=== PATIENT | female | born 1945 | race Caucasian/White ===

== ENCOUNTER 2019-06-09 14:17 | Outpatient (CLI) | payer MEDICARE, SELFPAY ==
--- NOTE | ~2019-06-09 | XR_ITS ---
EXAMINATION: XR sacroiliac joints min 3V, XR hip RT min 2V DATE: 06/09/2019 14:52 INDICATION: Right-sided hip pain TECHNIQUE: 1. Anteroposterior and frog-leg lateral views of the right hip were obtained. 2. AP and left and right oblique views of the sacroiliac joints were obtained. COMPARISON: None. FINDINGS: Bone alignment is normal. No fracture or suspected avascular necrosis. There is mild left and moderat e right hip osteoarthritis. Minimal bilateral sacroiliac osteoarthritis. Sacral arches are intact. Mo derate to severe lower lumbar facet osteoarthritis. Multiple small metallic coils project over the mi d abdomen consistent with prior ventral hernia repair. IMPRESSION: 1. Mild left and moderate right hip osteoarthritis. 2. Moderate to severe lower lumbar facet osteoarthritis. Reviewed, dictated and finalized at location A. Y MANAGER IMPRESSION: 1. Mild left and moderate right hip osteoarthritis. 2. Moderate to severe lower lumbar facet osteoarthritis.
== END 2019-06-09 14:18 | disposition home or self-care (01) ==
LOC: ANHIMG 14:29
PROVIDERS: PCP Family Medicine; Visit Provider Family Medicine
DX: M16.0 Bilateral primary osteoarthritis of hip (principal); M51.36 Other intervertebral disc degeneration, lumbar region
CPT/HCPCS: 72202; 73502

== ENCOUNTER 2019-08-19 13:50 | Outpatient (CLI) | payer MEDICARE, SELFPAY ==
--- NOTE | ~2019-08-19 | MR_ITS ---
EXAMINATION: MR hip RT wo con DATE: 08/19/2019 15:05 INDICATION: Right hip pain and weakness TECHNIQUE: Magnetic resonance imaging (MRI) of the right hip was performed without intravenous contr ast. Sequences included full-field axial PD-weighted FS FSE and T1-weighted FSE, coronal of the pelvi s with PD-weighted FS FSE, small field of view of the right hip with axial PD-weighted FS FSE, sagit mendoza PD-weighted FS FSE and coronal PD weighted FS FSE. Additional radial T1-weighted FGR oriented ort hogonal to the acetabular rim were obtained for evaluation of the labrum. COMPARISON: None FINDINGS: Bones/labrum/cartilage: Alignment is normal. No fracture, avascular necrosis or pathologic marrow replacing process. There i s bilateral decreased femoral head/neck offset which can predispose towards cam-type femoral acetabul ar impingement. On the right there is marrow edema underlying and small hypertrophic likely impingeme nt bumps with typical position at the anterosuperior femoral head neck junction. There is moderate ri ght hip osteoarthritis characterized by partial thickness cartilage loss with anterior and superior p redominant nonuniform joint space narrowing as well as small hypertrophic osteophytes at the margins of the acetabulum and femoral head. There is diffuse degenerative tearing of the anterosuperior to po sterior superior right acetabular labrum. Fluid: Small right hip joint effusion. Physiologic amount of fluid in the left hip joint space. Soft tissues: Normal and symmetric muscle bulk and signal in the pelvis and visualized proximal thighs. The iliopso as, gluteal and proximal hamstring tendons are normal. Limited evaluation of visceral organs of the p brooke is unremarkable. No pathologically enlarged pelvic/inguinal lymphadenopathy. IMPRESSION: 1. Moderate right hip osteoarthritis with likely degenerative tearing of the right acetabular labrum and small reactive right hip joint effusion. Reviewed, dictated and finalized at location A. IMPRESSION: 1. Moderate right hip osteoarthritis with likely degenerative tearing of the ri ght acetabular labrum and small reactive right hip joint effusion.
== END 2019-08-19 13:51 | disposition home or self-care (01) ==
PROVIDERS: PCP Family Medicine; Visit Provider Orthopaedic Surgery
DX: M25.551 Pain in right hip (principal); M16.12 Unilateral primary osteoarthritis, left hip; M25.451 Effusion, right hip; S73.191A Other sprain of right hip, initial encounter
CPT/HCPCS: 73721

== ENCOUNTER 2020-12-31 14:47 | Emergency (ER) | payer MEDICARE, SELFPAY ==
--- NOTE | 2020-12-31 14:53 | ED.FEMALEGU ---
HPI - Female Genitourinary General Chief complaint: Urogenital-Female Stated complaint: POS UTI Time Seen by Provider: 12/31/20 14:53 Source: patient and RN notes reviewed History of Present Illness HPI Narrative: Patient is a 75-year-old female who presents the urgent care with complaints of a possible UTI. Patient states that symptoms started approximately 3 days ago and the last 2 days have been increased urinary frequency, some incontinence, and suprapubic pressure. Patient denies of any use of [id number] medication for symptoms. Denies of any chronic UTIs. Denies of fever, chills, nausea, vomiting, back pain or blood in the urine. No other acute complaints. No acute distress noted. Patient aware of the plan of care. Some parts of this dictation were generated by voice recognition software and may contain typographical and/or grammatical inaccuracies. Related Data Home Medications Medication Instructions Recorded Confirmed naproxen 500 mg tablet 500 mg PO Q12H PRN tablet 05/22/19 12/31/20 omeprazole 20 mg capsule,delayed 20 mg PO DAILY 05/22/19 12/31/20 release albuterol sulfate 90 mcg/actuation 2 puff INHALATION Q4H PRN gm 06/09/19 12/31/20 aerosol inhaler azelastine 205.5 mcg (0.15 %) 1 spray NASAL DAILY 06/09/19 12/31/20 nasal spray tiotropium bromide 2.5 2 puff INHALATION DAILY 06/09/19 12/31/20 mcg/actuation mist for inhalation acetaminophen [Tylenol Extra 500 mg PO Q6H PRN 12/31/20 12/31/20 Strength] cholecalciferol (vitamin D3) 50 mcg PO DAILY 12/31/20 12/31/20 [Vitamin D3] lutein 20 mg PO DAILY 12/31/20 12/31/20 melatonin 5 mg PO HS 12/31/20 12/31/20 [id number]-vit K 1 tablet PO DAILY 12/31/20 12/31/20 [Adults Multivitamin] Allergies Allergy/AdvReac Type Severity Reaction Status Date / Time erythromycin base Allergy Unknown Unknown Verified 12/31/20 15:00 metformin AdvReac Severe Diarrhea Verified 12/31/20 15:00 Review of Systems Review of Systems: CONSTITUTIONAL: Denies fever, chills, or sweats. EYES: Denies visual changes, redness, or discharge. ENT: Denies rhinorrhea, congestion, sore throat, or otalgia. CARDIOVASCULAR: Denies chest pain, palpitations, or edema. RESPIRATORY: Denies cough or dyspnea. GASTROINTESTINAL: Denies abdominal pain, nausea, vomiting, or diarrhea. GENITOURINARY: Reports of dysuria, urinary frequency, incontinence and suprapubic pressure SKIN: Denies rash or itching. MUSCULOSKELETAL: Denies back pain, joint pain, or myalgia. NEUROLOGIC: Denies headache, numbness, or weakness. All other systems reviewed are negative, except as documented in HPI. [facility] Past Medical History Medical History (Updated 12/31/20 @ 15:16 by TERRI Narayan) Allergic cough Asthma due to environmental allergies Broken wrist Environmental allergies GERD (gastroesophageal reflux disease) Hyperlipidemia Hypothyroidism determined by thyroid function test Obesity (BMI 30.0-34.9) Pre-op evaluation Surgical History Surgical History H/O left wrist surgery History of cholecystectomy History of hernia repair History of tonsillectomy History of tubal ligation [place] teeth removed Family History Family History Mother Family history of hypercholesterolemia Father Family history of atrial fibrillation Social History Social History Smoking status: Smoker, status unknown Second hand tobacco smoke exposure: No Smoking end date: 04/15/1968 Alcohol intake: current Alcohol use details: Social Substance use: never Substance use type: does not use Gender identity (if verbalized by the patient): Female Spiritual care concerns: Yes Agree to blood products: Yes Comments At the time of my signature, I reviewed and agree with the nursing past medical, surgical, social
[2020-12-31 15:02] VITALS: BP 146/75; PULSE 81; RESP 16; TEMP 36.4; O2SAT 100
== END 2020-12-31 15:30 | disposition home or self-care (01) ==
PROVIDERS: Emergency Provider Nurse Practitioner Family; PCP Internal Medicine
DX: N39.0 Urinary tract infection, site not specified (principal); E78.5 Hyperlipidemia, unspecified; Z79.1 Long term (current) use of non-steroidal anti-inflammatories (NSAID)
CPT/HCPCS: 81003; 87077; 87086; 87186; 99213; G0463

== ENCOUNTER 2021-10-28 17:22 | Observation (INO) | payer MEDICARE, SELFPAY ==
[2021-10-28] VITALS (31 sets, daily range): BP systolic 144–185; BP diastolic 67–105; PULSE 92–112; RESP 14–30; TEMP 36.6–37.1; O2SAT 88–100; BMI 27.3; BMI 27.5
--- NOTE | ~2021-10-28 | XR_ITS ---
EXAMINATION: XR chest 2V Exam Date/Time: 10/28/2021 17:55 CDT HISTORY: sob,hx als and collapsed lt lung, on ventilator at home Comparison: 07/23/2018. RESULT: Lines, tubes, and devices: Cholecystectomy clips. Lungs and pleura: Lobar opacification in the lingula, with volume loss. Patchy subsegmental bibasila r opacities. Cardiomediastinal silhouette: Stable cardiomediastinal silhouette. Other: No acute osseous or upper abdominal finding. IMPRESSION: Possible lingular collapse/atelectasis. Bibasilar subsegmental atelectasis. Infection not excluded. Reviewed, dictated and finalized at location K. IMPRESSION: Possible lingular collapse/atelectasis. Bibasilar subsegmental atelectasis. Inf ection not excluded.
--- NOTE | ~2021-10-28 | XR_ITS ---
EXAMINATION: XR chest 1V portable DATE: 10/30/2021 07:48 INDICATION: Pneumonia TECHNIQUE: frontal view of the chest was obtained. COMPARISON: Chest radiograph and CT dated 10/28/2021 FINDINGS: Airspace opacities along the elevated left hemidiaphragm and favor atelectasis over pneumonia based o n appearance on prior CT. Mild linear discoid atelectasis at the right lung base. No pulmonary edema, pleural effusion or pneumothorax. The cardiomediastinal silhouette is normal. Cholecystectomy clips in right upper quadrant. IMPRESSION: 1. Persistent bibasilar opacities, left greater than right and favor atelectasis over pneumonia. Reviewed, dictated and finalized at location A. IMPRESSION: 1. Persistent bibasilar opacities, left greater than right and favor atelectasi s over pneumonia.
--- NOTE | ~2021-10-28 | CT_ITS ---
EXAMINATION: CTA chest PE protocol DATE: 10/28/2021 20:43 INDICATION: Eval for PE TECHNIQUE: Computed tomography angiography (CTA) of the chest was performed with 100 mL Omnipaque-350 intravenous contrast timed to evaluate the pulmonary arteries. Coronal maximum intensity projection 3D-reconstructions were created by the technologist. The dose-length product (DLP) was 410.02 mGy-cm. Automated exposure control and iterative reconstruction technique were employed. COMPARISON: X-ray chest, same date. FINDINGS: Study quality: Limited by motion artifact in the lower lobes. Pulmonary arteries: No pulmonary emboli detected. Thoracic aorta: Mild atherosclerotic calcification. Lung parenchyma and airways: Subsegmental dependent/basal consolidation in the lingula and to a great er extent the left lower lobe. Thoracic inlet, axillae and chest wall: Unremarkable. Mediastinum: Normal. Heart and pericardium: Normal. Coronary artery calcifications: Absent. Pleura: Unremarkable. Upper abdomen: Simple left cortical and parapelvic cysts. Bones: Moderate compression deformity of L1. IMPRESSION: Limited evaluation of the lower lobes due to motion artifact, within that constraint no definite CT e vidence of acute pulmonary embolus. Left lingular and lower lobe opacities may reflect atelectasis, a spiration, or the consolidation of pneumonia. Acute versus chronic L1 compression deformity, correlat e with point tenderness. Reviewed, dictated and finalized at location K. IMPRESSION: Limited evaluation of the lower lobes due to motion artifact, within that const raint no definite CT evidence of acute pulmonary embolus. Left lingular and low er lobe opacities may reflect atelectasis, aspiration, or the consolidation of pneumonia. Acute versus chronic L1 compression deformity, correlate with point tenderness.
--- NOTE | 2021-10-28 17:28 | ECG_ITS ---
Measurements Intervals [place] Rate: 109 P: 26 MI: 192 QRS: 18 QRSD: 102 T: 28 QT: 388 QTc: 525 Interpretive Statements SINUS TACHYCARDIA POSSIBLE LEFT ATRIAL ENLARGEMENT CONSIDER INFERIOR INFARCT, AGE INDETERMINATE BASELINE ARTIFACT- I, II, III, AVR, AVL, AVF ABNORMAL ECG Electronically Signed On 10-28-2021 21:18:42 CDT by Cristopher Reynoso D.O.
[2021-10-28 19:07] LABS: Basophils Percent Auto 0.3 % (0.2-1.2); Eosinophils Percent Auto 0.1 % (0-4.4); Hematocrit 45.1 % (37.0-47.0); Hemoglobin 14.6 g/dL (12.0-15.0); Immature Granulocyte Absolute 0.03 K/mm3 (0.00-0.031); Immature Granulocyte Percent A 0.2 % (0-0.5); Lymphocytes Absolute Auto 1.49 K/mm3 (0.9-3.2); Lymphocytes Percent Auto 10.4 % (18.3-44.2); Mean Corpuscular HGB Conc 32.4 g/dl (32-36); Mean Corpuscular Hemoglobin 29.1 pg (26-34); Mean Corpuscular Volume 89.8 fl (80-100); Monocytes Absolute Auto 0.6 K/mm3 (0.1-0.6); Monocytes Percent Auto 4.3 % (2.6-8.5); Neutrophils Absolute Auto 12.1 K/mm3 (1.3-6.7); Neutrophils Percent Auto 84.7 % (45.5-73.1); Platelet Count Result 302 k/mm3 (150-375); Red Blood Count 5.02 M/mm3 (4.2-5.4); Red Cell Distribution Width 14.4 % (11.5-14.5); White Blood Count 14.3 K/mm3 (4.5-10.0)
--- NOTE | 2021-10-28 19:15 | ED.SOB ---
HPI - SOB/Dyspnea General Chief Complaint: Shortness of Breath/Dyspnea Stated Complaint: SHORTNESS OF BREATH Time Seen by Provider: 10/28/21 18:55 History of Present Illness HPI Narrative: This is a 76-year-old female with a history of ALS, presents emergency department complaining of moderate persistent shortness of breath today. Up until today, she states she was in her normal state of health. She has had small amount of cough, but denies fevers, chest pain, swelling of the legs, recent travel, or known sick contacts. She and her state typically she is able to wear a CPAP with improvement but her symptoms did not improve today. Related Data Home Medications Medication Instructions Recorded Confirmed naproxen 500 mg tablet 500 mg PO Q12H PRN Pain 05/22/19 12/31/20 omeprazole 20 mg capsule,delayed 20 mg PO DAILY 05/22/19 12/31/20 release albuterol sulfate 90 mcg/actuation 2 puff inhalation Q4H PRN 06/09/19 12/31/20 aerosol inhaler (ProAir HFA) Shortness Of Breath azelastine 205.5 mcg (0.15 %) 1 spray intranasal DAILY 06/09/19 12/31/20 nasal spray tiotropium bromide 2.5 2 puff inhalation DAILY 06/09/19 12/31/20 mcg/actuation mist for inhalation (Spiriva Respimat) acetaminophen 500 mg tablet 500 mg PO Q6H PRN Pain 12/31/20 12/31/20 (Tylenol Extra Strength) cholecalciferol (vitamin D3) 50 50 mcg PO DAILY 12/31/20 12/31/20 mcg (2,000 unit) capsule (Vitamin D3) lutein 20 mg tablet 20 mg PO DAILY 12/31/20 12/31/20 melatonin 5 mg tablet 5 mg PO HS 12/31/20 12/31/20 multivit with minerals-iron 18 1 tablet PO DAILY 12/31/20 12/31/20 mg-folic ac 400 mcg-vit K 25 mcg tablet (Adults Multivitamin) Allergies Allergy/AdvReac Type Severity Reaction Status Date / Time erythromycin base Allergy Unknown Unknown Verified 12/31/20 15:00 metformin AdvReac Severe Diarrhea Verified 12/31/20 15:00 Review of Systems Review of Systems: CONSTITUTIONAL: Denies fever, chills, or sweats. EYES: Denies visual changes, redness, or discharge. ENT: Denies rhinorrhea, congestion, sore throat, or otalgia. CARDIOVASCULAR: Denies chest pain, palpitations, or edema. RESPIRATORY: Dyspnea, cough, no hemoptysis GASTROINTESTINAL: Denies abdominal pain, nausea, vomiting, or diarrhea. GENITOURINARY: Denies dysuria or hematuria. SKIN: Denies rash or itching. MUSCULOSKELETAL: Denies back pain, joint pain, or myalgia. NEUROLOGIC: Denies headache, numbness, dizziness, or weakness. PSYCHIATRIC: Denies anxiety or depression. [facility] Past Medical History Medical History Allergic cough ALS (amyotrophic lateral sclerosis) Asthma due to environmental allergies Broken wrist Environmental allergies GERD (gastroesophageal reflux disease) Hyperlipidemia Hypothyroidism determined by thyroid function test Obesity (BMI 30.0-34.9) Pre-op evaluation Surgical History Surgical History H/O left wrist surgery History of cholecystectomy History of hernia repair History of tonsillectomy History of tubal ligation [place] teeth removed Family History Family History Mother Family history of hypercholesterolemia Father Family history of atrial fibrillation Social History Social History Smoking status: Smoker, status unknown Second hand tobacco smoke exposure: No Smoking end date: 04/15/1968 Alcohol intake: current Alcohol use details: Social Substance use: never Substance use type: does not use Gender identity (if verbalized by the patient): Female Spiritual care concerns: Yes Agree to blood products: Yes Exam Narrative: GENERAL: Well-appearing, well-nourished, and in no acute distress. HEAD: Normocephalic, atraumatic. EYES: PERRLA and EOMI. ENT: Nares clear, no rhinorrhea or epi
[2021-10-28 19:16] LABS: Alanine Aminotransferase 40 U/L (6-35); Albumin Level 3.6 g/dL (3.5-5.1); Alkaline Phosphatase 176 U/L (38-126); Anion Gap 3 mmol/L (8-16); Aspartate Amino Transferase 44 U/L (14-36); Bilirubin,Total 0.7 mg/dL (0.2-1.3); Blood Urea Nitrogen 21 mg/dL (7-17); Calcium 8.8 mg/dL (8.4-10.2); Carbon Dioxide 33 mmol/L (22-30); Chloride 101 mmol/L (98-107); Estimated CRCL calculation 68 ml/min; Estimated Glomerular Filt Rate > 60; Glucose 127 mg/dL (65-110); Potassium 3.7 mmol/L (3.4-5.0); Sodium 137 mmol/L (137-145)
[2021-10-28 19:39] LABS: NT Pro B Type Natriuretic Pept 126 pg/mL (5-100); Troponin I < 0.012 ng/mL (0.000-0.034)
[2021-10-28] MEDS: SODIUM CHLORIDE 0.9% IV 500 ML 999 ML IV CONT (19:49)
[2021-10-28 20:27] LABS: SARS-CoV-2 RNA PCR Negative
--- NOTE | 2021-10-28 21:42 | PM.IMHP ---
H&P: HPI History of Present Illness Date/Time: 10/28/21 21:25 Chief Complaint: Dyspnea Narrative: This is a pleasant 76 year old female patient with significant PMH of ALS with home ventilator, seasonal allergies, asthma, GERD, HLD, hypothyroidism, collapsed left lung who presents to the ER this evening with complaints of increasing weakness and dyspnea. She reports that she had a dental cleaning two days ago and took her premedication as she was prescribed, but today she developed a dry cough and increased dyspnea. When she feels increasingly dyspneic, she reports that using her ventilator usually improves the breathing, but this time it did not. There has been no fever, calf pain, leg edema, recent travel or sick contacts. She does not wear home oxygen. In the ED the pt. was worked up and labs were significant for a WBC count of 14.3 without a left shift. Troponin, COVID are both negative. She has mildly elevated LFT's that are non-specific as she does not have any abdominal pain, or nausea. Chest x-ray demonstrates possible lingular collapse / atelectasis with bibasilar subsegmental atelectasis and infection not excluded. CTA of the chest was performed that demonstrated a limited evaluation of the lower lobe secondary to motion artifact otherwise there was no definitive PE. There again will left lingular opacities that may reflect atelectasis, aspiration or the consolidation of pneumonia. In addition there is a an incidental finding of acute versus chronic L1 compression deformity. Patient has not had any recent falls and she denies any current back pain. She is being admitted to hospitalist service for management of her PNA. Will consider Pulmonology consult as this is a complicated patient. At the time of my exam, the pt. is resting comfortably with 2L oxygen maintaining her saturations in the high 90s. If removed, she desaturates to the mid to high 80s. She denies any CP, N/V/D and no headache, dizziness or lightheadedness. She has no other complaints or symptoms to report at this time. Her is bringing her ventilator from home for use. Review of Systems Review of Systems: All systems reviewed & are unremarkable except as noted in HPI and below PMFSH Past Medical History Medical History Allergic cough ALS (amyotrophic lateral sclerosis) Asthma due to environmental allergies Broken wrist Environmental allergies GERD (gastroesophageal reflux disease) Hyperlipidemia Hypothyroidism determined by thyroid function test Obesity (BMI 30.0-34.9) Pre-op evaluation Surgical History Surgical History H/O left wrist surgery History of cholecystectomy History of hernia repair History of tonsillectomy History of tubal ligation [place] teeth removed Family History Family History Mother Family history of hypercholesterolemia Father Family history of atrial fibrillation Social History Social History Smoking status: Smoker, status unknown Second hand tobacco smoke exposure: No Smoking end date: 04/15/1968 Alcohol intake: current Alcohol use details: Social Substance use: never Substance use type: does not use Gender identity (if verbalized by the patient): Female Spiritual care concerns: Yes Agree to blood products: Yes Meds Home Medications and Allergies Home Medications Medication Instructions Recorded Confirmed Type naproxen 500 mg tablet 500 mg PO Q12H PRN Pain 05/22/19 12/31/20 History omeprazole 20 mg capsule,delayed 20 mg PO DAILY 05/22/19 12/31/20 History release albuterol sulfate 90 mcg/actuation 2 puff inhalation Q4H PRN 06/09/19 12/31/20 History aerosol inhaler (ProAir HFA) Shortness Of Breath azelastine 205.5 mcg (0.15 %) 1 spray intranasal DAILY
[2021-10-28] MEDS: ALBUTEROL SULFATE NEB 2.5 MG/3 ML INH 5 MG INHALATION (22:00)
[2021-10-28] MEDS: DOXYCYCLINE HYCLATE 100 MG TABLET PO (22:32)
--- NOTE | 2021-10-28 23:34 | ADMGEN ---
This patient, Cinthia Joseph, was admitted to IMU Room 232-01 at 2325. Patient/family oriented to hospital policies and general routines including ID bracelet, bed and alarms, visiting hours, pain management, procedures, bathroom and other care routines, personal items, smoking policy, room service/diet, and visiting hours. Information on how to activate the Rapid Response Team has been discussed. Patient/Family are encouraged to report perceived risks to care and to ask questions if they do not understand what they are told or what they should do.
[2021-10-29] VITALS (20 sets, daily range): BP systolic 119–175; BP diastolic 52–87; PULSE 63–106; RESP 12–22; TEMP 36.1–37.2; O2SAT 90–100
[2021-10-29] MEDS: WATER FOR IRRIGATION, STERILE 1,000 ML BOTTLE 1000 ML (00:52)
[2021-10-29 04:50] LABS: Basophils Percent Auto 0.3 % (0.2-1.2); Eosinophils Percent Auto 0.3 % (0-4.4); Hemoglobin 13.7 g/dL (12.0-15.0); Immature Granulocyte Absolute 0.03 K/mm3 (0.00-0.031); Immature Granulocyte Percent A 0.3 % (0-0.5); Lymphocytes Absolute Auto 2.66 K/mm3 (0.9-3.2); Lymphocytes Percent Auto 22.3 % (18.3-44.2); Mean Corpuscular HGB Conc 31.9 g/dl (32-36); Mean Corpuscular Hemoglobin 29.3 pg (26-34); Mean Corpuscular Volume 91.9 fl (80-100); Mean Platelet Volume 9.1 fl (7.4-10.4); Monocytes Absolute Auto 0.8 K/mm3 (0.1-0.6); Monocytes Percent Auto 6.5 % (2.6-8.5); Neutrophils Absolute Auto 8.4 K/mm3 (1.3-6.7); Neutrophils Percent Auto 70.3 % (45.5-73.1); Platelet Count Result 290 k/mm3 (150-375); Red Blood Count 4.68 M/mm3 (4.2-5.4); Red Cell Distribution Width 14.5 % (11.5-14.5); White Blood Count 11.9 K/mm3 (4.5-10.0)
[2021-10-29 05:04] LABS: Alanine Aminotransferase 33 U/L (6-35); Albumin Level 3.2 g/dL (3.5-5.1); Alkaline Phosphatase 135 U/L (38-126); Anion Gap 0 mmol/L (8-16); Aspartate Amino Transferase 46 U/L (14-36); Bilirubin,Total 0.7 mg/dL (0.2-1.3); Blood Urea Nitrogen 22 mg/dL (7-17); Calcium 8.2 mg/dL (8.4-10.2); Carbon Dioxide 34 mmol/L (22-30); Chloride 102 mmol/L (98-107); Estimated CRCL calculation 84 ml/min; Estimated Glomerular Filt Rate > 60; Glucose 91 mg/dL (65-110); Potassium 3.9 mmol/L (3.4-5.0); Sodium 136 mmol/L (137-145)
[2021-10-29] MEDS: LEVOTHYROXINE SODIUM 50 MCG TABLET PO (05:49)
[2021-10-29] MEDS: UMECLIDINIUM BROMIDE 62.5 MCG ELLIPTA 1 PUFF INHALATION (09:34)
[2021-10-29] MEDS: DOXYCYCLINE 100 MG/NS 100 ML 100 MG/100 ML BAG IVPB ×2 (09:41→21:13)
[2021-10-29] MEDS: MULTIVITAMINS /C LUTEIN (CENTRUM SILVER) TABLET *BKC 1 TAB PO (09:42)
[2021-10-29] MEDS: CHOLECALCIFEROL 1,000 UNITS TABLET 2000 UNITS PO (09:42)
[2021-10-29] MEDS: ENOXAPARIN 40 MG/0.4 ML SYRINGE SUB-Q (09:43)
[2021-10-29] MEDS: AZELASTINE HCL NASAL 0.1% 137 MCG/SPR 30 ML BTL 1 SPRAY NASAL (09:43)
[2021-10-29] MEDS: PANTOPRAZOLE 40 MG TABLET PO (09:43)
--- NOTE | 2021-10-29 10:22 | PM.IMPN ---
Progress Note: A&P Assessment and Plan (1) Pneumonia: Code(s): J18.9 - Pneumonia, unspecified organism Status: Acute Assessment and Plan: - In setting of Chronic ALS. - Had premedication two days ago for dental procedure. - Requiring supplemental oxygen. - Continue Rocephin and Doxy IVPB. - Secondary to complicated respiratory history requiring home ventilation, consult Pulmonology. - PRN Albuterol - May use home Ventilator with home settings. - Umeclidinium initiated. (2) ALS (amyotrophic lateral sclerosis): Code(s): G12.21 - Amyotrophic lateral sclerosis Status: Acute Assessment and Plan: - Plan as noted above. - May use home ventilator with home settings. (3) Hyperlipidemia: Qualifiers: Hyperlipidemia type: mixed hyperlipidemia Qualified Code(s): E78.2 - Mixed hyperlipidemia Code(s): E78.5 - Hyperlipidemia, unspecified Status: Acute Assessment and Plan: - Hold home statin in setting of mild Transaminitis. Pt is not symptomatic. - Will recheck CMP in AM. - pt.s COVID test is negative. (4) Hypothyroidism: Code(s): E03.9 - Hypothyroidism, unspecified Status: Acute Assessment and Plan: - Continue Levothyroxine home dose. (5) GERD (gastroesophageal reflux disease): Code(s): K21.9 - Gastro-esophageal reflux disease without esophagitis Status: Acute Assessment and Plan: - Continue PPI therapy. Subjective Date/time seen: 10/29/21 10:22 Shortness of breath is a little better. No new complaints Exam Const: General: no acute distress and uncomfortable Other: Elderly female patient lying supine in bed at this time but appears uncomfortable as she has to strain to speak. She acknowledges that this is part of her muscle weakness from ALS, and she does not feel dyspneic at the time of the exam as it appears she has broken sentences. HENMT: General nose exam: Normal nares present Mouth: Yes moist mucous membranes Eyes: General: appearance normal, both eyes and all related structures Sclera: sclerae normal Pupils: Equal, round and reactive pupils present EOM: EOMs intact bilaterally Neck: Neck: supple and no JVD Thyroid: thyroid normal Lymphatic: lymphadenopathy not noted Chest: Other: Not tender to palpation. Resp: Effort & Inspection: abnormal respiratory effort (Decreased inspiratory effort, 2/2 her ALS weakness.) Auscultation: diminished lung sounds bilateral and diffuse Cardio: Rate: regular rate Rhythm: regular rhythm Heart sounds: no gallops, no murmurs and no rubs GI: Inspection: non-distended Auscultation: normal bowel sounds Skin: General skin exam: normal color and no rashes or lesions noted Lesions: no lesions noted Rashes: no rashes noted Wounds: no wounds Neuro: Cranial nerves: Yes Equal, round and reactive pupils present Speech: normal speech (Normal speech given her chronic weakness. No dysarthria appreciated.) Motor exam (neuro): tone not normal throughout (Generalized weakness secondary to her muscle atrophy.) Sensory Exam: normal sensation Extrem: General: normal to inspection, no edema and no pedal edema Psych: Mental Status: mental status grossly normal Affect: normal affect Objective Data Vital Signs Vital Signs: Vital Signs - 24 hr 10/28/21 17:24 10/28/21 18:50 10/28/21 18:50 Temperature 98.7 F Pulse Rate 112 H 110 H Respiratory Rate 14 Blood Pressure 144/76 H Pulse Oximetry 94 92 Oxygen Delivery Room Air Room Air Oxygen Flow Rate Fraction of Inspired Oxygen 10/28/21 18:51 10/28/21 18:54 10/28/21 19:50 Temperature Pulse Rate Respiratory Rate 26 H Blood Pressure 160/75 H Pulse Oximetry 92 92 89 L Oxygen Delivery Room Air Room Air Room Air Oxygen Flow Rate Fraction of Inspired Oxygen 10/28/21 19:50 10/28/21 19:46 10/28/21 19:47 Temperature Pulse Rate 109 H 109 H Respiratory Rate 26 H 30 H Blood Pressu
--- NOTE | 2021-10-29 11:41 | PCSTNOTE ---
Please refer to the Bedside Swallow Evaluation in the EMR. Please note, silent aspiration cannot be ruled out at bedside.
[2021-10-29] MEDS: carvediloL 3.125 MG TABLET PO ×2 (11:51→20:46)
--- NOTE | 2021-10-29 19:04 | PHAR ---
Home med verified: Riluzole 50mg tabs - take 1 tablet PO every 12 hours. Start 1 tablet daily. Increase to 1 tablet 2 times per day after 1 week if tolerating
--- NOTE | 2021-10-29 20:15 | PM.CNPUL ---
Assessment and Plan Assessment and plan (1) Pneumonia: Code(s): J18.9 - Pneumonia, unspecified organism Status: Acute Assessment and Plan: She has amyotrophic lateral sclerosis with bulbar weakness, LLL atelectasis and pneumonia due to dental cleaning with aspiration in the LLL. She has respiratory muscle weakness managed with a noninvasive positive pressure device at home. Her ResMed Astral device is at the bedside. She is 5 feet 1 inch tall; safety TV 380 mL, Min PS 10 cm, TiMax 2.5 sec. SHE MAY REQUIRE A CHANGE IN SETTINGS ON HER ASTRAL OR USE OF OUR DEVICE IN AVAPS AE MODE. PLAN: Check NIF, negative inspiratory force BID to follow for decrements in ability to inhale, which can signal worsening respiratory failure and need for ABG/intubation. She may require more support than her NPPV can provide. She needs Cornet valve to assist with managing atelectasis on LLL, and incentive spirometer. She is on IV Rocephin and po doxycycline for empiric treatment of pneumonia. O2 to maintain adequate saturation up to 94-95%, not higher. Pulmozyme as a mucolytic BID. Repeat CXR. (2) ALS (amyotrophic lateral sclerosis): Code(s): G12.21 - Amyotrophic lateral sclerosis Status: Acute Assessment and Plan: See above. History of Present Illness History of Present Illness Consult date: 10/29/21 Requesting physician: Evita Lopez APN-C Chief complaint: Pneumonia Narrative: patient was seen at 20:20 NEW CONSULT: Cinthia Joseph is a 76 year old woman admitted through the ED For pneumonia. She has a diagnosis of ALS confirmed this year on riluzole 50 mg BID. She suspects she had symptoms dating back to her 40s with a chronic cough, a feeling of weakness in her throat muscles. She has a the RFC-1 gene, and her neurologist is Dr Kenny neely as [facility]. She had her teeth cleaned October 26 with prophylactic antibiotics for mitral valve disease. She started having increased cough Saturday with a small amount of sputum Saturday and increasing shortness of breath Saturday and Saturday, over her baseline. She uses a home NPPV device with sleep and shortness of breath in the day. She does not use home oxygen. Her NPPV did not help her following the dental cleaning, so she knew she needed to come to the hospital. . PMH: asthma diagnosed in adulthood with a chronic cough, seasonal allergies treated with Gianna-D in the past. GERD, history of Rl fundoplication without much improvement. Hyperlipidemia, hypothyroidism. She has NOT had COVID. At the time of my exam, the pt. is resting comfortably with 2L oxygen maintaining her saturations in the high 90s. If removed, she desaturates to the mid to high 80s. She denies any CP, N/V/D and no headache, dizziness or lightheadedness. She has no other complaints or symptoms to report at this time. Her is bringing her ventilator from home for use. DATA * 10/28/2021 CTA : limited evaluation of the lower lobes due to motion artifact, within that constraint no definite CT evidence of acute pulmonary embolus. Left lingular and lower lobe opacities may reflect atelectasis, aspiration, or the consolidation of pneumonia. Acute versus chronic L1 compression deformity, correlate with point tenderness. * 10/28/2021- WBC 14.3, normal COVID testing, normal troponin, * 10/28/2021 CXR : Possible lingular collapse/atelectasis. Bibasilar subsegmental atelectasis. Infection not excluded. Review of Systems Review of Systems: She is weaker on her left side than the right, arms and legs. She walks with a walker. She has had a cough for years. She wears reading glasses. She becomes more tired later in the day. 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 She does not have leg swelling. She has used a NPPV since May this year. [facility] Past Medic
[2021-10-30] VITALS (15 sets, daily range): BP systolic 97–130; BP diastolic 58–72; PULSE 59–91; RESP 18–20; TEMP 36.2–36.6; O2SAT 92–98
--- NOTE | 2021-10-30 00:39 | PCRCNOTE ---
Window of time for administration has passed. See next scheduled administration.
--- NOTE | 2021-10-30 01:51 | PC.NURSE ---
This patient, Cinthia Joseph, was transferred to [facility] on 10/30/21 at 0155. Personal belongings sent with patient. Report given to MEGHANN Marin. Appropriate documentation sent with patient.
--- NOTE | 2021-10-30 01:58 | PC.NURSE ---
RECIEVED PT FROM IMU IN BED. PT MEDS AND CHART PROVIDED BY MARK
[2021-10-30 05:21] LABS: Alanine Aminotransferase 26 U/L (6-35); Albumin Level 2.6 g/dL (3.5-5.1); Alkaline Phosphatase 127 U/L (38-126); Anion Gap 0 mmol/L (8-16); Aspartate Amino Transferase 33 U/L (14-36); Bilirubin,Total 0.5 mg/dL (0.2-1.3); Blood Urea Nitrogen 22 mg/dL (7-17); Calcium 8.3 mg/dL (8.4-10.2); Carbon Dioxide 31 mmol/L (22-30); Chloride 105 mmol/L (98-107); Estimated CRCL calculation 69 ml/min; Estimated Glomerular Filt Rate > 60; Glucose 95 mg/dL (65-110); Potassium 3.3 mmol/L (3.4-5.0); Sodium 136 mmol/L (137-145)
[2021-10-30] MEDS: LEVOTHYROXINE SODIUM 50 MCG TABLET PO (06:19)
[2021-10-30] MEDS: carvediloL 3.125 MG TABLET PO (07:46)
[2021-10-30] MEDS: ENOXAPARIN 40 MG/0.4 ML SYRINGE SUB-Q (07:47)
[2021-10-30] MEDS: MULTIVITAMINS /C LUTEIN (CENTRUM SILVER) TABLET *BKC 1 TAB PO (07:47)
[2021-10-30] MEDS: CHOLECALCIFEROL 1,000 UNITS TABLET 2000 UNITS PO (07:47)
[2021-10-30] MEDS: PANTOPRAZOLE 40 MG TABLET PO (07:47)
[2021-10-30] MEDS: AZELASTINE HCL NASAL 0.1% 137 MCG/SPR 30 ML BTL 1 SPRAY NASAL (07:47)
[2021-10-30] MEDS: SERTRALINE HCL 50 MG TABLET PO (08:43)
[2021-10-30] MEDS: POTASSIUM CHLORIDE 20 MEQ PACKET (FOR LIQUID) 40 MEQ PO (08:43)
[2021-10-30] MEDS: DOXYCYCLINE 100 MG/NS 100 ML 100 MG/100 ML BAG IVPB (08:45)
[2021-10-30] MEDS: DORNASE ALFA INH SOLN 1 MG/ML 2.5 ML AMP 2.5 MG INHALATION (08:50)
[2021-10-30] MEDS: UMECLIDINIUM BROMIDE 62.5 MCG ELLIPTA 1 PUFF INHALATION (08:55)
--- NOTE | 2021-10-30 09:55 | PCRCNOTE ---
pt's NIF measured, out of 3 attempts, pt's best attempt read was 18
--- NOTE | 2021-10-30 10:35 | PM.IMPN ---
Progress Note: A&P Assessment and Plan (1) Pneumonia: Code(s): J18.9 - Pneumonia, unspecified organism Status: Acute Assessment and Plan: - In setting of Chronic ALS. - Had premedication two days ago for dental procedure. - Requiring supplemental oxygen. - Continue Rocephin and Doxy IVPB. - Secondary to complicated respiratory history requiring home ventilation, consult Pulmonology. - PRN Albuterol - May use home settings. - Umeclidinium initiated. (2) ALS (amyotrophic lateral sclerosis): Code(s): G12.21 - Amyotrophic lateral sclerosis Status: Acute Assessment and Plan: - Plan as noted above. - May use home ventilator with home settings. (3) Hyperlipidemia: Qualifiers: Hyperlipidemia type: mixed hyperlipidemia Qualified Code(s): E78.2 - Mixed hyperlipidemia Code(s): E78.5 - Hyperlipidemia, unspecified Status: Acute Assessment and Plan: - Hold home statin in setting of mild Transaminitis. Pt is not symptomatic. - Will recheck CMP in AM. - pt.s COVID test is negative. (4) Hypothyroidism: Code(s): E03.9 - Hypothyroidism, unspecified Status: Acute Assessment and Plan: - Continue Levothyroxine home dose. (5) GERD (gastroesophageal reflux disease): Code(s): K21.9 - Gastro-esophageal reflux disease without esophagitis Status: Acute Assessment and Plan: - Continue PPI therapy. Subjective Date/time seen: 10/30/21 10:35 Shortness of breath is at baseline. Doing well otherwise. Exam Const: General: no acute distress and uncomfortable Other: Elderly female patient lying supine in bed at this time but appears uncomfortable as she has to strain to speak. She acknowledges that this is part of her muscle weakness from ALS, and she does not feel dyspneic at the time of the exam as it appears she has broken sentences. HENMT: General nose exam: Normal nares present Mouth: Yes moist mucous membranes Eyes: General: appearance normal, both eyes and all related structures Sclera: sclerae normal Pupils: Equal, round and reactive pupils present EOM: EOMs intact bilaterally Neck: Neck: supple and no JVD Thyroid: thyroid normal Lymphatic: lymphadenopathy not noted Chest: Other: Not tender to palpation. Resp: Effort & Inspection: abnormal respiratory effort (Decreased inspiratory effort, 2/2 her ALS weakness.) Auscultation: diminished lung sounds bilateral and diffuse Cardio: Rate: regular rate Rhythm: regular rhythm Heart sounds: no gallops, no murmurs and no rubs GI: Inspection: non-distended Auscultation: normal bowel sounds Skin: General skin exam: normal color and no rashes or lesions noted Lesions: no lesions noted Rashes: no rashes noted Wounds: no wounds Neuro: Cranial nerves: Yes Equal, round and reactive pupils present Speech: normal speech (Normal speech given her chronic weakness. No dysarthria appreciated.) Motor exam (neuro): tone not normal throughout (Generalized weakness secondary to her muscle atrophy.) Sensory Exam: normal sensation Extrem: General: normal to inspection, no edema and no pedal edema Psych: Mental Status: mental status grossly normal Affect: normal affect Objective Data Vital Signs Vital Signs: Vital Signs - 24 hr 10/29/21 12:00 10/29/21 12:00 10/29/21 12:00 Temperature 98.4 F Pulse Rate 97 83 Respiratory Rate 12 Blood Pressure 146/87 H Pulse Oximetry 95 99 Oxygen Delivery Nasal Cannula Oxygen Flow Rate 2 10/29/21 14:00 10/29/21 16:00 10/29/21 16:00 Temperature 97.6 F Pulse Rate 63 65 64 Respiratory Rate 16 Blood Pressure 172/69 H Pulse Oximetry 100 Oxygen Delivery Oxygen Flow Rate 10/29/21 16:00 10/29/21 18:00 10/29/21 20:00 Temperature 97.8 F Pulse Rate 83 75 Respiratory Rate 20 Blood Pressure 130/64 Pulse Oximetry 99 93 Oxygen Delivery Nasal Cannula Oxygen Flow Rate 2 10/29/21 20:46 10/29/21
--- NOTE | 2021-10-30 11:54 | PM.PNPUL ---
Progress Note: A&P Assessment and Plan (1) Pneumonia: Code(s): J18.9 - Pneumonia, unspecified organism Status: Acute Assessment and Plan: 10/30/21 Patient states she is breathing back at her baseline. She denies fever, chills, cough or phlegm production. White blood cell Improved from 14.3 to 11.9. saturations on 2 L nasal cannula is 96%. Chest x-ray today with stable left greater than right bibasilar atelectasis versus pneumonia. COVID is negative. Blood cultures are negative. Today is day 3 of ceftriaxone and doxycycline. from a pulmonary perspective patient is suitable for discharge on these pulmonary medicines: Levaquin 750 mg p.o. q.day x7 days Spiriva Respimat 2.5 mcg at 2 puffs q.day albuterol rescue 2 puffs q.4 hours p.r.n. shortness of breath and wheezing. Oxygen at rest and with ambulation per formal home O2 assessment which has been ordered today. Discussed with Dr. Alfaro (2) ALS (amyotrophic lateral sclerosis): Code(s): G12.21 - Amyotrophic lateral sclerosis Status: Acute Assessment and Plan: patient with ALS on noninvasive ventilation at night. Patient tolerated her home noninvasive ventilation last night with no issues and states that she feels back to her normal. Would continue her noninvasive ventilation at night and when she sleeps during the day. Subjective Date/time seen: 10/30/21 11:54 Interval history: 11/08/21 NEW CONSULT: Cinthia Joseph is a 76 year old woman admitted through the ED For pneumonia. She has a diagnosis of ALS confirmed this year on riluzole 50 mg BID.? She suspects she had symptoms dating back to her 40s with a chronic cough, a feeling of weakness in her throat muscles. She has a the RFC-1 gene, and her neurologist is Dr Kenny neely as [facility].? She had her teeth cleaned October 26 with prophylactic antibiotics for mitral valve disease.? She started having increased cough Saturday with a small amount of sputum Saturday and increasing shortness of breath Saturday and Saturday, over her baseline. She uses a home NPPV device with sleep and shortness of breath in the day. She does not use home oxygen.? Her NPPV did not help her following the dental cleaning, so she knew she needed to come to the hospital. . PMH: asthma diagnosed in adulthood with a chronic cough, seasonal allergies treated with Gianna-D in the past.? GERD, history of Rl fundoplication without much improvement. Hyperlipidemia, hypothyroidism. She has NOT had COVID. At the time of my exam, the pt. is resting comfortably with 2L oxygen maintaining her saturations in the high 90s. If removed, she desaturates to the mid to high 80s. She denies any CP, N/V/D and no headache, dizziness or lightheadedness. She has no other complaints or symptoms to report at this time. Her is bringing her ventilator from home for use. 10/30/21 Patient states she is breathing back at her baseline. She denies fever, chills, cough or phlegm production. White blood cell 11.9. saturations on 2 L nasal cannula is 96%. Chest x-ray today with stable left greater than right bibasilar atelectasis versus pneumonia. DATA * 10/28/2021 CTA : limited evaluation of the lower lobes due to motion artifact, within that constraint no definite CT evidence of acute pulmonary embolus. Left lingular and lower lobe opacities may reflect atelectasis, aspiration, or the consolidation of pneumonia. Acute versus chronic L1 compression deformity, correlate with point tenderness. * 10/28/2021- WBC 14.3, normal COVID testing, normal troponin, * 10/28/2021 CXR : Possible lingular collapse/atelectasis. Bibasilar subsegmental atelectasis. Infection not excluded.? Review of Systems Constitutional: Constitutional: Reports no additional constitutional complaints Eyes: Eyes: Reports no additional eye complaints ENT: Reports system reviewed and no additional complaint
--- NOTE | 2021-10-30 12:09 | PM.DS ---
DS: Admitting Diagnosis Discharge Date October 30, 2021 Admitting Diagnosis Pneumonia DS: Discharge Diagnosis Discharge Diagnosis (1) Pneumonia: Code(s): J18.9 - Pneumonia, unspecified organism Status: Acute Assessment and Plan: - In setting of Chronic ALS. -Levaquin on discharge. -home oxygen evaluation. (2) ALS (amyotrophic lateral sclerosis): Code(s): G12.21 - Amyotrophic lateral sclerosis Status: Acute Assessment and Plan: - Plan as noted above. - May use home ventilator with home settings. (3) Hyperlipidemia: Qualifiers: Hyperlipidemia type: mixed hyperlipidemia Qualified Code(s): E78.2 - Mixed hyperlipidemia Code(s): E78.5 - Hyperlipidemia, unspecified Status: Acute Assessment and Plan: - Hold home statin in setting of mild Transaminitis. Pt is not symptomatic. - Will recheck CMP in AM. - pt.s COVID test is negative. (4) Hypothyroidism: Code(s): E03.9 - Hypothyroidism, unspecified Status: Acute Assessment and Plan: - Continue Levothyroxine home dose. (5) GERD (gastroesophageal reflux disease): Code(s): K21.9 - Gastro-esophageal reflux disease without esophagitis Status: Acute Assessment and Plan: - Continue PPI therapy. DS: Summary Hospital Course Hospital Course: See discharge plan diagnoses Time Spent with Patient Time attestation: Total time spent providing and/or coordinating discharge services: Exam Const: General: no acute distress and uncomfortable Other: Elderly female patient lying supine in bed at this time but appears uncomfortable as she has to strain to speak. She acknowledges that this is part of her muscle weakness from ALS, and she does not feel dyspneic at the time of the exam as it appears she has broken sentences. HENMT: General nose exam: Normal nares present Mouth: Yes moist mucous membranes Eyes: General: appearance normal, both eyes and all related structures Sclera: sclerae normal Pupils: Equal, round and reactive pupils present EOM: EOMs intact bilaterally Neck: Neck: supple and no JVD Thyroid: thyroid normal Lymphatic: lymphadenopathy not noted Chest: Other: Not tender to palpation. Resp: Effort & Inspection: abnormal respiratory effort (Decreased inspiratory effort, 2/2 her ALS weakness.) Auscultation: diminished lung sounds bilateral and diffuse Cardio: Rate: regular rate Rhythm: regular rhythm Heart sounds: no gallops, no murmurs and no rubs GI: Inspection: non-distended Auscultation: normal bowel sounds Skin: General skin exam: normal color and no rashes or lesions noted Lesions: no lesions noted Rashes: no rashes noted Wounds: no wounds Neuro: Cranial nerves: Yes Equal, round and reactive pupils present Speech: normal speech (Normal speech given her chronic weakness. No dysarthria appreciated.) Motor exam (neuro): tone not normal throughout (Generalized weakness secondary to her muscle atrophy.) Sensory Exam: normal sensation Extrem: General: normal to inspection, no edema and no pedal edema Psych: Mental Status: mental status grossly normal Affect: normal affect DS: Data Data Completed and Pending Labs on day of discharge: Labs from last 24 hours 10/30/21 04:49 Sodium 136 L Potassium 3.3 L Chloride 105 Carbon Dioxide 31 H Anion Gap 0 L BUN 22 H Creatinine 0.50 L Estim Creat Clear Calc 69 Estimated GFR > 60 Glucose 95 Calcium 8.3 L Total Bilirubin 0.5 AST 33 ALT 26 Alkaline Phosphatase 127 H Total Protein 6.0 L Albumin 2.6 L Preliminary micro results at discharge 10/28/21 22:10 Blood Culture - Preliminary Blood 10/28/21 22:10 Blood Culture - Preliminary Blood Discharge Plan Discharge Attending physician on discharge: Surjit Alfaro Consulting providers: Zakia Vallejo Discharging Clinician: Surjit Alfaro Patient Disposition: Home, Self-Care Activit
--- NOTE | 2021-10-30 14:26 | HOMEO2EVAL ---
Evaluation was performed at [facility] Home Oxygen Evaluation RC: Home Oxygen (O2) Evaluation Start: 10/30/21 12:02 Freq: ONCE Status: Active Protocol: RPE Activity Type Activity Date Activity User E-sign Co-sign Detail Recorded Client Recorded Date Recorded By Document 10/30/21 13:50 KRM [id number] 10/30/21 14:24 KRM Document 10/30/21 13:52 KRM [id number] 10/30/21 14:24 KRM Document 10/30/21 13:54 KRM [id number] 10/30/21 14:24 KRM 10/30/21 10/30/21 10/30/21 13:50 13:52 13:54 Home O2 Evaluation Test Phase Resting Exercise Exercise Oxygen Delivery Room Air Room Air Room Air Pulse Oximetry (90-100 %) 96 92 94 Pulse Rate (60-100 beats/min) 67 76 78 Activity Tolerance Good Ambulation Distance (feet) 50 Ambulation Distance (meters) 15.23 Treatment Charges O2 Evaluation - Inpatient
== END 2021-10-30 17:02 | disposition home or self-care (01) ==
LOC: ANHED 21:43 → ANHIMU 23:10 → ANH2MED 10-30 12:08 → ANHIMU 10-31 09:10
PROVIDERS: Emergency Medicine; Nurse Practitioner Adult Health; Admitting Provider Internal Medicine; Emergency Provider Preventive Medicine Aerospace Medicine; PCP Internal Medicine; Visit Provider Chiropractor
DX: J18.9 Pneumonia, unspecified organism (principal); G12.21 Amyotrophic lateral sclerosis; Z99.11 Dependence on respirator [ventilator] status; E78.5 Hyperlipidemia, unspecified; E03.9 Hypothyroidism, unspecified; K21.9 Gastro-esophageal reflux disease without esophagitis; R06.82 Tachypnea, not elsewhere classified; J45.909 Unspecified asthma, uncomplicated; E66.9 Obesity, unspecified; Z68.28 Body mass index [BMI] 28.0-28.9, adult; Z90.49 Acquired absence of other specified parts of digestive tract; Z20.822 Contact with and (suspected) exposure to COVID-19; R47.81 Slurred speech; R53.1 Weakness; J98.19 Other pulmonary collapse; M48.56XA Collapsed vertebra, not elsewhere classified, lumbar region, initial encounter for fracture; R79.89 Other specified abnormal findings of blood chemistry; R47.1 Dysarthria and anarthria; Z87.891 Personal history of nicotine dependence; J98.11 Atelectasis; I70.0 Atherosclerosis of aorta; Z99.89 Dependence on other enabling machines and devices; Z79.1 Long term (current) use of non-steroidal anti-inflammatories (NSAID); Z79.899 Other long term (current) drug therapy; R09.02 Hypoxemia; Z79.51 Long term (current) use of inhaled steroids
CPT/HCPCS: 36415; 71045; 71046; 71275; 80053; 83880; 84484; 85025; 87040; 92610; 93005; 94618; 94640; 96361; 96365; 96366; 96367; 96372; 99285; A9270; C9803; G0378; J0696; J1650; J7040; Q9967; U0003; U0005

== ENCOUNTER 2021-11-03 18:12 | Emergency (ER) | payer MEDICARE, SELFPAY ==
--- NOTE | 2021-11-03 18:15 | ED.WOUNDLAC ---
HPI - Wound/Laceration General Chief Complaint: Wound/Laceration Stated Complaint: FALL/SCALP LACERATION Time Seen by Provider: 11/03/21 18:22 Source: patient and RN notes reviewed Mode of arrival: ambulatory Limitations: no limitations History of Present Illness HPI narrative: 76-year-old female with history of ALS presents concern for wound to her scalp. She fell down a couple of steps 1-1/2 hours ago, landed first on her backside and then hit her head on the step. She denies loss of consciousness, vomiting, headache. Reports a wound to the back of her head. Related Data Home Medications Medication Instructions Recorded Confirmed albuterol sulfate 90 mcg/actuation 2 puff inhalation Q4H PRN 06/09/19 10/29/21 aerosol inhaler (ProAir HFA) Shortness Of Breath azelastine 205.5 mcg (0.15 %) 1 spray intranasal DAILY 06/09/19 10/29/21 nasal spray tiotropium bromide 2.5 2 puff inhalation DAILY 06/09/19 10/29/21 mcg/actuation mist for inhalation (Spiriva Respimat) acetaminophen 500 mg tablet 500 mg PO Q6H PRN Pain 12/31/20 10/29/21 (Tylenol Extra Strength) cholecalciferol (vitamin D3) 50 50 mcg PO DAILY 12/31/20 10/29/21 mcg (2,000 unit) capsule (Vitamin D3) lutein 20 mg tablet 20 mg PO DAILY 12/31/20 10/29/21 multivit with minerals-iron 18 1 tablet PO DAILY 12/31/20 10/29/21 mg-folic ac 400 mcg-vit K 25 mcg tablet (Adults Multivitamin) riluzole 50 mg tablet 50 tablet PO BID 10/29/21 10/29/21 sertraline 50 mg tablet 1 tablet PO DAILY 10/29/21 10/29/21 Allergies Allergy/AdvReac Type Severity Reaction Status Date / Time erythromycin base Allergy Unknown Unknown Verified 12/31/20 15:00 metformin AdvReac Severe Diarrhea Verified 12/31/20 15:00 Review of Systems Review of Systems: CONSTITUTIONAL: Denies malaise, chills, sweats, or fever. SKIN: Reports laceration to the back of her head MUSCULOSKELETAL: Denies muscle skeletal pain ABD: Denies nausea or vomiting NEUROLOGIC: Denies numbness, weakness, headache All systems reviewed & are unremarkable except as noted in HPI and below PMFSH Past Medical History Medical History (Updated 11/03/21 @ 18:35 by Caridad Perez NP) Allergic cough ALS (amyotrophic lateral sclerosis) Asthma due to environmental allergies Broken wrist Environmental allergies GERD (gastroesophageal reflux disease) Hyperlipidemia Hypothyroidism determined by thyroid function test Pre-op evaluation Surgical History Surgical History H/O left wrist surgery History of cholecystectomy History of hernia repair History of tonsillectomy History of tubal ligation [place] teeth removed Family History Family History Mother Family history of hypercholesterolemia Father Family history of atrial fibrillation Social History Social History Smoking packs per day: 0 Smoking cigarettes per day: 0.0 Years smoked: 4 Smoking pack-years: 0.00 Smoking status: Former smoker Tobacco type: cigarettes Second hand tobacco smoke exposure: No Smoking end date: 04/15/69 Alcohol intake: former Drinks per week: 1 Alcohol use details: Social Substance use: never Substance use type: does not use Gender identity (if verbalized by the patient): Female Spiritual care concerns: No Agree to blood products: Yes Comments At time of signature, agree with nursing past medical, surgical, social and family history. There is no relevant family history pertinent to the presenting complaint Exam Narrative: GENERAL: Well-appearing, well-nourished, and in no acute distress. HEAD: Normocephalic EYES: PERRLA, conjunctivae clear, and EOMI. ENT: Mucous membranes moist. NECK: Supple. No lymphadenopathy CHEST: Clear to auscultation. No respiratory distress. HEART: Regular rate and rhythm. SKIN: Warm, d
[2021-11-03 18:20] VITALS: BP 167/71; PULSE 88; RESP 16; TEMP 36.8; O2SAT 97
[2021-11-03 18:23] VITALS: BP 167/71; PULSE 88; RESP 16; TEMP 36.8; O2SAT 97
== END 2021-11-03 18:44 | disposition home or self-care (01) ==
PROVIDERS: Emergency Provider Nurse Practitioner; PCP Internal Medicine
DX: S01.01XA Laceration without foreign body of scalp, initial encounter (principal); W10.9XXA Fall (on) (from) unspecified stairs and steps, initial encounter; Z87.891 Personal history of nicotine dependence; G12.21 Amyotrophic lateral sclerosis; J45.909 Unspecified asthma, uncomplicated; K21.9 Gastro-esophageal reflux disease without esophagitis; E78.5 Hyperlipidemia, unspecified; E03.9 Hypothyroidism, unspecified
CPT/HCPCS: 12001; 99212; G0463

== ENCOUNTER 2021-11-07 19:19 | Emergency (ER) | payer MEDICARE, SELFPAY ==
[2021-11-07 19:28] VITALS: BP 135/93; PULSE 92; RESP 16; TEMP 36.3; O2SAT 96
--- NOTE | 2021-11-07 19:29 | ED.WOUNDLAC ---
HPI - Wound/Laceration General Chief Complaint: Wound/Laceration Stated Complaint: head injury Time Seen by Provider: 11/07/21 19:30 Source: patient, RN notes reviewed and old records reviewed Mode of arrival: ambulatory Limitations: no limitations History of Present Illness HPI narrative: 76-year-old female presents to the [facility] with with a laceration to the posterior head. Bleeding is controlled. Patient's says she went to stand up kind of fell down onto the floor and hit her head on a cabinet. Patient denies any new back or neck pain. Patient denies any blurry vision. Patient reports that he witnessed the episode, no loss of consciousness. Applied pressure to the area. States that she should be in a wheelchair at all times due to her ALS. Denies any nausea or vomiting. Currently have multiple carmen just below laceration posterior head. Discussions with in regards to signs to go to the emergency room which he declined at this time. Patient tetanus UTD: Yes Related Data Home Medications Medication Instructions Recorded Confirmed albuterol sulfate 90 mcg/actuation 2 puff inhalation Q4H PRN 06/09/19 10/29/21 aerosol inhaler (ProAir HFA) Shortness Of Breath azelastine 205.5 mcg (0.15 %) 1 spray intranasal DAILY 06/09/19 10/29/21 nasal spray tiotropium bromide 2.5 2 puff inhalation DAILY 06/09/19 10/29/21 mcg/actuation mist for inhalation (Spiriva Respimat) acetaminophen 500 mg tablet 500 mg PO Q6H PRN Pain 12/31/20 10/29/21 (Tylenol Extra Strength) cholecalciferol (vitamin D3) 50 50 mcg PO DAILY 12/31/20 10/29/21 mcg (2,000 unit) capsule (Vitamin D3) lutein 20 mg tablet 20 mg PO DAILY 12/31/20 10/29/21 multivit with minerals-iron 18 1 tablet PO DAILY 12/31/20 10/29/21 mg-folic ac 400 mcg-vit K 25 mcg tablet (Adults Multivitamin) riluzole 50 mg tablet 50 tablet PO BID 10/29/21 10/29/21 sertraline 50 mg tablet 1 tablet PO DAILY 10/29/21 10/29/21 Allergies Allergy/AdvReac Type Severity Reaction Status Date / Time erythromycin base Allergy Unknown Unknown Verified 12/31/20 15:00 metformin AdvReac Severe Diarrhea Verified 12/31/20 15:00 Review of Systems Review of Systems: All systems reviewed & are unremarkable except as noted in HPI and below Constitutional: Constitutional: Reports no additional constitutional complaints, Denies chills and Denies fever(s) Eyes: Eyes: Reports no additional eye complaints ENT: Reports system reviewed and no additional complaints, except as documented Cardiovascular: Cardiovascular: Reports no additional cardiovascular complaints Respiratory: Respiratory: Reports no additional respiratory complaints Gastrointestinal: Gastrointestinal: Reports no additional gastrointestinal complaints Musculoskeletal: Musculoskeletal: Reports no additional musculoskeletal complaints Integumentary/Breasts: Skin/Breast: Reports as per HPI and Reports other (Laceration posterior head) Neurologic: Reports system reviewed and no additional complaints, except as documented Psychiatric: Psychiatric: Reports no additional psychiatric complaints Allergic/Immunologic: Allergic/Immunologic: Reports no additional allergic/immunologic complaints PMFSH Past Medical History Medical History Allergic cough ALS (amyotrophic lateral sclerosis) Asthma due to environmental allergies Broken wrist Environmental allergies GERD (gastroesophageal reflux disease) Hyperlipidemia Hypothyroidism determined by thyroid function test Pre-op evaluation Surgical History Surgical History H/O left wrist surgery History of cholecystectomy History of hernia repair History of tonsillectomy History of tubal ligation [place] teeth removed Family History Family History Mother Family history of hyper
== END 2021-11-07 19:58 | disposition home or self-care (01) ==
PROVIDERS: Emergency Provider Nurse Practitioner
DX: S01.01XA Laceration without foreign body of scalp, initial encounter (principal); W19.XXXA Unspecified fall, initial encounter; Z87.891 Personal history of nicotine dependence; G12.21 Amyotrophic lateral sclerosis; J45.909 Unspecified asthma, uncomplicated; K21.9 Gastro-esophageal reflux disease without esophagitis; E78.5 Hyperlipidemia, unspecified; E03.9 Hypothyroidism, unspecified
CPT/HCPCS: 12001; 99212; G0463

== ENCOUNTER 2021-11-08 11:07 | Observation (INO) | payer MEDICARE, SELFPAY ==
[2021-11-08] VITALS (27 sets, daily range): BP systolic 101–189; BP diastolic 49–118; PULSE 93–118; RESP 12–29; TEMP 36–36.9; O2SAT 94–100; BMI 28.3
--- NOTE | ~2021-11-08 | CT_ITS ---
EXAMINATION: CTA chest PE protocol DATE: 11/08/2021 16:16 CDT INDICATION: Hypoxia. Tachycardia. TECHNIQUE: Computed tomographic angiography (CTA) of the chest was performed with 100 mL Omnipaque-35 0 intravenous contrast. The dose-length product was 259.68 mGy-cm. Maximum intensity projection 3D-re constructions of the aorta and other arteries were constructed by the technologist on a separate work station. Automated exposure control and iterative reconstruction technique were employed. COMPARISON: CT dated 10/28/2021 FINDINGS: There is atherosclerosis of the aorta and coronary arteries. Heart size is normal. There is patchy airspace disease of the mid and lower lungs which may represent atelectasis and/or pneumonia. The study is technically adequate without evidence for pulmonary embolism. Elevated left diaphragm s uggesting phrenic nerve paralysis. Mild thoracic spondylosis. There is a chronic compression fracture of T12. IMPRESSION: 1. No evidence for pulmonary embolism. 2: Interval progression of consolidation in the mid and lower lungs bilaterally which may represent atelectasis and/or pneumonia. Reviewed, dictated and finalized at location A. IMPRESSION: 1. No evidence for pulmonary embolism. 2: Interval progression of consolidation in the mid and lower lungs bilaterall y which may represent atelectasis and/or pneumonia.
--- NOTE | ~2021-11-08 | XR_ITS ---
EXAMINATION: XR chest 1V INDICATION: Hypoxia TECHNIQUE: AP view of the chest is obtained. COMPARISON: 10/30/2021 and PE protocol dated 10/28/2021 FINDINGS: Left basilar airspace opacities persist with slight worsening. No pleural effusion or pneum othorax. The right lung is clear. The cardiomediastinal silhouette is stable. IMPRESSION: 1. Left basilar airspace opacity with slight worsening, consistent with atelectasis versus pneumonia. Reviewed, dictated and finalized at location B. IMPRESSION: 1. Left basilar airspace opacity with slight worsening, consistent with atelect asis versus pneumonia.
--- NOTE | ~2021-11-08 | CT_ITS ---
EXAMINATION: CT brain wo con DATE: 11/08/2021 12:37 INDICATION: Status post multiple falls. Posterior head laceration. History of ALS. TECHNIQUE: Computed tomography (CT) of the head was performed without intravenous contrast. The dose- length product was 605.33 mGy-cm. Automated exposure control and iterative reconstruction technique w ere employed. COMPARISON: None FINDINGS: Mild generalized atrophy. There are scattered moderate periventricular and subcortical whit e matter changes, most likely related to small vessel ischemic disease (microangiopathy). Basilar cis terns are patent. No ventriculomegaly or midline shift. No acute intracranial hemorrhage or infarctio n. No mass or mass effect. No depressed skull fractures. Midline sagittal images are unremarkable. IMPRESSION: 1. No acute intracranial abnormality. 2: Chronic age-related findings. Reviewed, dictated and finalized at location A.
--- NOTE | 2021-11-08 11:15 | ECG_ITS ---
Measurements Intervals [place] Rate: 113 P: 40 [place]: 186 QRS: 20 QRSD: 88 T: 11 QT: 322 QTc: 442 Interpretive Statements SINUS TACHYCARDIA VENTRICULAR PREMATURE COMPLEX CONSIDER INFERIOR INFARCT, AGE INDETERMINATE BORDERLINE ST-T WAVE ABNORMALITY- HIGH LATERAL LEADS BASELINE ARTIFACT- I, II, III, AVR, AVL, AVF, V2 ABNORMAL ECG Electronically Signed On 11-08-2021 12:36:49 CDT by Cristopher Reynoso D.O.
--- NOTE | 2021-11-08 11:21 | ED.SOB ---
HPI - SOB/Dyspnea General Chief Complaint: Shortness of Breath/Dyspnea Stated Complaint: Difficulty breathing History of Present Illness HPI Narrative: Pt presents via EMS with low o2 sats and increase respiratory rate from home. Pt has a history of ALS and recently admitted with pneumonia. says her sats were in 70's this morning, he was able to get them into 80's with ventilatory assist device but not above that. Pt received neb and solumedrol in route. Pt is full code. Pt has fallen several time recently and had occiptal wound repaired at [facility] but not CT yet. Related Data Home Medications Medication Instructions Recorded Confirmed albuterol sulfate 90 mcg/actuation 2 puff inhalation Q4H PRN 06/09/19 10/29/21 aerosol inhaler (ProAir HFA) Shortness Of Breath azelastine 205.5 mcg (0.15 %) 1 spray intranasal DAILY 06/09/19 10/29/21 nasal spray tiotropium bromide 2.5 2 puff inhalation DAILY 06/09/19 10/29/21 mcg/actuation mist for inhalation (Spiriva Respimat) acetaminophen 500 mg tablet 500 mg PO Q6H PRN Pain 12/31/20 10/29/21 (Tylenol Extra Strength) cholecalciferol (vitamin D3) 50 50 mcg PO DAILY 12/31/20 10/29/21 mcg (2,000 unit) capsule (Vitamin D3) lutein 20 mg tablet 20 mg PO DAILY 12/31/20 10/29/21 multivit with minerals-iron 18 1 tablet PO DAILY 12/31/20 10/29/21 mg-folic ac 400 mcg-vit K 25 mcg tablet (Adults Multivitamin) riluzole 50 mg tablet 50 tablet PO BID 10/29/21 10/29/21 sertraline 50 mg tablet 1 tablet PO DAILY 10/29/21 10/29/21 Allergies Allergy/AdvReac Type Severity Reaction Status Date / Time erythromycin base Allergy Unknown Unknown Verified 11/08/21 14:03 metformin AdvReac Severe Diarrhea Verified 11/08/21 14:03 Review of Systems Review of Systems: ROS unobtainable: Yes unobtainable due to medical condition (pt not verbal due to ALS) [facility] Past Medical History Medical History (Updated 11/08/21 @ 13:33 by Sabi G. Gerling, PA-C) Amyotrophic lateral sclerosis 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 Patient of Dr. Kenny Kramer at [facility]. Asthma Environmental allergies Gastroesophageal reflux disease Hyperlipidemia Hypothyroidism Surgical History Surgical History (Updated 11/08/21 @ 13:32 by Sabi Mccray PA-C) History of cholecystectomy History of hernia repair History of surgery on left wrist History of tonsillectomy History of tubal ligation [place] teeth removed Family History Family History Mother Family history of hypercholesterolemia Father Family history of atrial fibrillation Social History Social History (Updated 11/08/21 @ 13:33 by Sabi Mccray PA-C) Smoking packs per day: 0 Smoking cigarettes per day: 0.0 Years smoked: 4 Smoking pack-years: 0.00 Smoking status: Former smoker Tobacco type: cigarettes Second hand tobacco smoke exposure: No Smoking end date: 04/15/69 Alcohol intake: former Drinks per week: 1 Alcohol use details: Social Substance use: never Substance use type: does not use Spiritual care concerns: No Agree to blood products: Yes Exam Const: General: well developed and other (non verbal) Nutritional Appearance: average body habitus HENMT: Head: normal to inspection (occiptal wound repair in place) Neck: Neck: normal visual inspection, no lymphadenopathy and trachea midline Chest: Chest palpation & inspection: normal inspection of the chest Resp: Effort & Inspection: tachypneic Auscultation: clear to auscultation bilaterally Percussion: percussion normal Cardio: Rate: tachycardic Rhythm: regular rhythm GI: Inspection: normal to inspection GI Palp: Yes Soft to palpation Auscultation: normal bowel sounds Skin: General skin exam: normal color Lesions: no lesions Rashes: no rashes Neuro: General: other (not able to follow commands so not able to perform good neuro exam) Ex
[2021-11-08 11:39] LABS: Alveolar/Arterial O2 Gradient 79.4 mmHg; Base Excess ABG 4.6 mEq/l (+/-2.0); Fractional Inspired Oxygen 32 %; HCO3 ABG 32.1 mEq/l (22.0-26.0); Oxygen Content ABG 17.4 %vol (16.0-22.0); Oxygen Saturation ABG 94.4 % (95.0-100.0); Oxyhemoglobin 91.6 % THb (90.0-100.0); PO2 ABG 77.6 mmHg (80.0-100.0); PO2 FiO2 Ratio Arterial Blood 2.42 %; Total Hemoglobin 13.5 g/dL (12.0-18.0)
[2021-11-08 11:40] LABS: Device NASAL CANNULA; Modified Allen's Test Pass; PCO2 ABG 60.8 mmHg (35.0-45.0); Site Drawn RIGHT RADIAL
[2021-11-08 11:52] LABS: Basophils Absolute Auto 0.1 K/mm3 (0.0-0.1); Basophils Percent Auto 0.5 % (0.2-1.2); Eosinophils Absolute Auto 0.2 K/mm3 (0-0.3); Eosinophils Percent Auto 1.6 % (0-4.4); Hematocrit 43.6 % (37.0-47.0); Hemoglobin 13.5 g/dL (12.0-15.0); Immature Granulocyte Absolute 0.04 K/mm3 (0.00-0.031); Immature Granulocyte Percent A 0.3 % (0-0.5); Lymphocytes Absolute Auto 4.63 K/mm3 (0.9-3.2); Lymphocytes Percent Auto 33.2 % (18.3-44.2); Mean Corpuscular Hemoglobin 28.8 pg (26-34); Mean Platelet Volume 9.2 fl (7.4-10.4); Monocytes Absolute Auto 0.7 K/mm3 (0.1-0.6); Monocytes Percent Auto 4.9 % (2.6-8.5); Neutrophils Absolute Auto 8.3 K/mm3 (1.3-6.7); Neutrophils Percent Auto 59.5 % (45.5-73.1); Platelet Count Result 324 k/mm3 (150-375); Red Blood Count 4.69 M/mm3 (4.2-5.4); Red Cell Distribution Width 14.2 % (11.5-14.5); White Blood Count 13.9 K/mm3 (4.5-10.0)
[2021-11-08 12:01] LABS: Lactic Acid Reflex 1.4 mmol/L (0.7-2.0)
[2021-11-08 12:02] LABS: Prothrombin Time 12.9 Seconds (11.1-14.7)
[2021-11-08 12:03] LABS: Partial Thromboplastin Time 33.9 SECONDS (22.3-36.8)
[2021-11-08 12:04] LABS: Alanine Aminotransferase 35 U/L (6-35); Albumin Level 3.3 g/dL (3.5-5.1); Alkaline Phosphatase 154 U/L (38-126); Anion Gap 5 mmol/L (8-16); Aspartate Amino Transferase 39 U/L (14-36); Bilirubin,Total 0.7 mg/dL (0.2-1.3); Blood Urea Nitrogen 36 mg/dL (7-17); CRP 1.3 mg/dL (<1.0); Calcium 8.8 mg/dL (8.4-10.2); Carbon Dioxide 35 mmol/L (22-30); Chloride 100 mmol/L (98-107); Estimated Glomerular Filt Rate > 60; Glucose 165 mg/dL (65-110); Potassium 3.4 mmol/L (3.4-5.0); Sodium 140 mmol/L (137-145)
[2021-11-08 12:13] LABS: Troponin I < 0.012 ng/mL (0.000-0.034)
[2021-11-08 12:36] LABS: Appearance Urine Clear (Clear); Bilirubin Urine Negative (Negative); Blood Urine Negative (Negative); Color Urine Yellow (Yellow); Glucose Urine UA Negative (Negative); Ketones Urine Negative (Negative); Leukocyte Esterase Ur Negative LEU/UL (Negative); Nitrate Urine Negative (Negative); Protein Urine Negative (Negative); Urobilinogen Urine 0.2 mg/dL (<2.0)
[2021-11-08 12:38] LABS: Add Urine Microscopic? NO
[2021-11-08 12:44] LABS: SARS-CoV-2 RNA PCR Negative
--- NOTE | 2021-11-08 13:40 | PM.IMHP ---
H&P: HPI History of Present Illness Date/Time: 11/08/21 13:40 Chief Complaint: Shortness of breath. Narrative: This is a pleasant 76-year-old female with amyotrophic lateral sclerosis, chronic respiratory failure, hypothyroidism, hyperlipidemia, and GERD who presented to the ED via EMS from home for evaluation of shortness of breath. She was recently discharged from the hospital on 10/30/2021 with pneumonia after presenting with similar symptoms and she completed a course of levofloxacin just a couple of days ago. She felt better on discharge and she has been using her noninvasive positive pressure device (ResMed Astral) at home, 2 hours during the day and 10 hours at night. This morning she was more short of breath when she got up and within an hour she went back to bed to use her NPPV due to increasing shortness of breath. Unfortunately that provided her with no relief and EMS was summoned when her noted that her SpO2 was in the 70's. She was placed on nasal cannula by EMS with improvement and she has since been started on BiPAP due to CO2 retention. At the time of my evaluation she is resting comfortably and her only complaint now is that of hunger as she did not eat yet today. She denies fever, chills, sweats, congestion, sore throat, cough, chest pain, pleuritic pain, nausea, vomiting, and diarrhea. Of note, the patient has had several falls the last week due to balance issues and she has sustained 2 scalp lacerations requiring carmen. Review of Systems Review of Systems: Twelve systems were reviewed. She has balance issues and has fall several times this week, one she fell backwards long-term down the stairs. She has a walker at home but at times she does ask for help when going up steps. She was seen at urgent care 2x for scalp lacerations and she has carmen in at this time. She has bulbar symptoms from her ALS; she denies concerns for aspiration. Except as documented, all other systems were reviewed and are negative. [facility] Past Medical History Medical History (Updated 11/08/21 @ 19:43 by Sabi Mccray PA-C) Amyotrophic lateral sclerosis 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 Patient of Dr. Kenny Kramer at [facility]. Asthma Chronic respiratory failure Patient of Dr. Rene Givens at [place]. Environmental allergies Gastroesophageal reflux disease Hyperlipidemia Hypothyroidism Surgical History Surgical History (Updated 11/08/21 @ 13:32 by Sabi Mccray PA-C) History of cholecystectomy History of hernia repair History of surgery on left wrist History of tonsillectomy History of tubal ligation [place] teeth removed Family History Family History Mother Family history of hypercholesterolemia Father Family history of atrial fibrillation Social History Social History Social History: Surrogate medical decision maker: Rikki Joseph, spouse. Code status: Full code. Smoking packs per day: 0 Smoking cigarettes per day: 0.0 Years smoked: 4 Smoking pack-years: 0.00 Smoking status: Former smoker Tobacco type: cigarettes Second hand tobacco smoke exposure: No Smoking end date: 04/15/69 Alcohol intake: former Drinks per week: 1 Alcohol use details: Social Substance use: never Substance use type: does not use Spiritual care concerns: No Agree to blood products: Yes Meds Home Medications and Allergies Home Medications Medication Instructions Recorded Confirmed Type albuterol sulfate 90 mcg/actuation 2 puff inhalation Q4H PRN 06/09/19 11/08/21 History aerosol inhaler (ProAir HFA) Shortness Of Breath azelastine 205.5 mcg (0.15 %) 1 spray intranasal DAILY 06/09/19 11/08/21 History nasal spray tiotropium bromide 2.5 2 puff inhalation DAILY 06/09/19 11/08/21 History mcg/actuation mist for inhalation (Spiriva Respimat)
[2021-11-08] MEDS: SODIUM CHLORIDE 0.9% IV 1,000 ML 125 ML IV CONT (14:17)
--- NOTE | 2021-11-08 15:58 | ADMGEN ---
This patient, Cinthia Joseph, was admitted to IMU Room 231-01. Patient/family oriented to hospital policies and general routines including ID bracelet, bed and alarms, visiting hours, pain management, procedures, bathroom and other care routines, personal items, smoking policy, room service/diet, and visiting hours. Information on how to activate the Rapid Response Team has been discussed. Patient/Family are encouraged to report perceived risks to care and to ask questions if they do not understand what they are told or what they should do.
[2021-11-08 17:46] LABS: Alveolar/Arterial O2 Gradient 135.8 mmHg; Base Excess ABG 2.1 mEq/l (+/-2.0); Carboxyhemoglobin 1.1 % THb (0-2.0); Fractional Inspired Oxygen 40 %; HCO3 ABG 26.2 mEq/l (22.0-26.0); Methemoglobin ABG 0.3 %THb (0-1.5); Oxygen Content ABG 17.2 %vol (16.0-22.0); Oxyhemoglobin 95.6 % THb (90.0-100.0); PCO2 ABG 39.1 mmHg (35.0-45.0); PO2 ABG 104.4 mmHg (80.0-100.0); PO2 FiO2 Ratio Arterial Blood 2.61 %; Total Hemoglobin 12.7 g/dL (12.0-18.0); pH ABG 7.444 (7.350-7.450)
[2021-11-08 17:48] LABS: Device NON-INVASIVE VENT; Modified Allen's Test Pass; Non-Invasive Expiratory Pressure 5 CMH2O; Non-Invasive Inspiratory Pressure 10 CMH2O; Non-Invasive Vent Rate 16 /MIN; Site Drawn RIGHT BRACHIAL
[2021-11-08 17:55] LABS: Glucose Point of Care 171 mg/dl (65-105)
[2021-11-09] VITALS (13 sets, daily range): BP systolic 140–178; BP diastolic 64–101; PULSE 65–101; RESP 15–24; TEMP 36.2–36.7; O2SAT 92–100; BMI 28.3
[2021-11-09] MEDS: SODIUM CHLORIDE 0.9% IV 1,000 ML 125 ML IV CONT ×3 (02:41→21:07)
[2021-11-09 05:28] LABS: Hematocrit 36.8 % (37.0-47.0); Hemoglobin 11.5 g/dL (12.0-15.0); Mean Corpuscular HGB Conc 31.3 g/dl (32-36); Mean Corpuscular Hemoglobin 28.7 pg (26-34); Mean Corpuscular Volume 91.8 fl (80-100); Platelet Count Result 307 k/mm3 (150-375); Red Blood Count 4.01 M/mm3 (4.2-5.4); White Blood Count 10.6 K/mm3 (4.5-10.0)
--- NOTE | 2021-11-09 05:38 | PC.NURSE ---
This patient, Cinthia Joseph, was received from [facility] on 11/09/21. Patient/family oriented to unit policies and routines
[2021-11-09 05:55] LABS: Alanine Aminotransferase 29 U/L (6-35); Albumin Level 2.8 g/dL (3.5-5.1); Alkaline Phosphatase 121 U/L (38-126); Anion Gap 7 mmol/L (8-16); Aspartate Amino Transferase 33 U/L (14-36); Bilirubin,Total 0.6 mg/dL (0.2-1.3); Blood Urea Nitrogen 23 mg/dL (7-17); CRP 2.2 mg/dL (<1.0); Calcium 8.2 mg/dL (8.4-10.2); Carbon Dioxide 29 mmol/L (22-30); Chloride 103 mmol/L (98-107); Estimated CRCL calculation 86 ml/min; Estimated Glomerular Filt Rate > 60; Glucose 115 mg/dL (65-110); Potassium 3.5 mmol/L (3.4-5.0); Sodium 139 mmol/L (137-145)
[2021-11-09 06:03] LABS: Procalcitonin 0.1 ng/mL
[2021-11-09] MEDS: LEVOTHYROXINE SODIUM 50 MCG TABLET PO (06:27)
--- NOTE | 2021-11-09 08:16 | PM.IMPN ---
Progress Note: A&P Assessment and Plan (1) Acute and chronic respiratory failure with hypercapnia: Code(s): J96.22 - Acute and chronic respiratory failure with hypercapnia Status: Acute Assessment and Plan: She uses a noninvasive positive-pressure device at home (ResMed Astral device) 10 hours at nighttime and 2 hours during the day. Unfortunately that did not provide her with any benefit today when she became short of breath and her ABG today showed CO2 retention; she has since been started on BiPAP with improvement. She has respiratory muscle weakness related to her ALS and is followed by Dr. Rene Givens affiliated with [place] and her has been in touch with her since discharge. Patient is on room air with adequaet oxygen saturation at this time. -Appreciate recommendations from Pulmonology (2) Abnormal chest x-ray: Code(s): R93.89 - Abnormal findings on diagnostic imaging of other specified body structures Status: Acute Assessment and Plan: Chest x-ray once again shows left basilar airspace opacity with slight worsening consistent with atelectasis versus pneumonia. Recently finished a 7 day course of levofloxacin. Leukocytosis almost resolved this morning. BCX with no growth. -Continue PEP therapy as detailed above -Monitor fever curve (3) Frequent falls: Code(s): R29.6 - Repeated falls Status: Acute Assessment and Plan: She has had 3 or 4 falls within the last week, reportedly due to loss of balance. Currently she has 2 scalp lacerations that are stapled. Initiate fall precautions. PT/OT consulted. (4) Tachycardia: Code(s): R00.0 - Tachycardia, unspecified Status: Acute Assessment and Plan: No PE on CTA chest. (5) Amyotrophic lateral sclerosis: Code(s): G12.21 - Amyotrophic lateral sclerosis Status: Acute Assessment and Plan: Continue riluzole. Subjective Date/time seen: 11/09/21 08:16 Respiratory therapy is in the room evaluating the patient during rounds. Patient says she feels better and no longer has shortness of breath. RT reports the patient has been sitting for approximately 20 minutes on room air saturating 97%. Review of Systems Respiratory: Respiratory: Denies dyspnea Exam Narrative: GENERAL: NAD, cooperative HEENT: Normocephalic, atraumatic, anicteric NECK: Supple CV: Normal S1, S2, RRR, No MRG RESP: CTAB, Normal work of breathing. EXTREMITIES: Warm and well perfused. SKIN: warm, dry and intact. NEURO: CN 2-12 grossly intact Objective Data Vital Signs Vital Signs: Vital Signs - 24 hr 11/08/21 11:07 11/08/21 11:16 11/08/21 11:40 Temperature Pulse Rate 114 H 112 H Respiratory Rate 26 H Blood Pressure 189/88 H Pulse Oximetry 94 Oxygen Delivery Nasal Cannula Oxygen Flow Rate 3 11/08/21 11:08 11/08/21 11:42 11/08/21 12:05 Temperature Pulse Rate Respiratory Rate 20 Blood Pressure Pulse Oximetry 96 98 Oxygen Delivery Nasal Cannula BiPAP BiPAP Oxygen Flow Rate 3 11/08/21 12:11 11/08/21 11:26 11/08/21 11:30 Temperature 96.8 F L Pulse Rate 111 H 111 H Respiratory Rate Blood Pressure 127/72 Pulse Oximetry 98 94 Oxygen Delivery Oxygen Flow Rate 11/08/21 11:45 11/08/21 12:00 11/08/21 12:15 Temperature Pulse Rate 118 H 112 H 111 H Respiratory Rate 19 19 19 Blood Pressure Pulse Oximetry 95 98 Oxygen Delivery Oxygen Flow Rate 11/08/21 12:16 11/08/21 12:42 11/08/21 12:45 Temperature Pulse Rate 111 H 109 H 108 H Respiratory Rate 21 H 22 H 16 Blood Pressure 127/72 Pulse Oximetry 98 100 100 Oxygen Delivery Oxygen Flow Rate 11/08/21 13:08 11/08/21 13:53 11/08/21 15:25 Temperature Pulse Rate 107 H 110 H 109 H Respiratory Rate 18 21 H 20 Blood Pressure 101/49 L 107/89 Pulse Oximetry 100 100 100 Oxygen Delivery Oxygen Flow Rate 11/08/21 15:31 11/08/21 17:33
[2021-11-09] MEDS: UMECLIDINIUM BROMIDE 62.5 MCG ELLIPTA 1 PUFF INHALATION (09:15)
[2021-11-09] MEDS: SERTRALINE HCL 25 MG TABLET 75 MG PO (11:23)
[2021-11-09] MEDS: MULTIVITAMINS /C LUTEIN (CENTRUM SILVER) TABLET *BKC 1 TAB PO (11:24)
[2021-11-09] MEDS: CHOLECALCIFEROL 1,000 UNITS TABLET 2000 UNITS PO (11:25)
[2021-11-09] MEDS: AZELASTINE HCL NASAL 0.1% 137 MCG/SPR 30 ML BTL 1 SPRAY NASAL (11:25)
[2021-11-09] MEDS: ATORVASTATIN 40 MG TABLET PO (11:25)
--- NOTE | 2021-11-09 11:40 | PCSTNOTE ---
Spoke with hospitalist who was agreeable to changing the bedside swallow evaluation order to a Modified Barium Swallow Study due to recent bedside completed (two weeks prior) and recurrent pneumonia. Waiting for changed order.
--- NOTE | 2021-11-09 11:57 | PCSTNOTE ---
Modified Barium Swallow Study on HOLD until 11/10/21 due to radiology availability. Nursing aware.
--- NOTE | 2021-11-09 12:44 | PM.CNPUL ---
Assessment and Plan Assessment and plan (1) Acute and chronic respiratory failure with hypercapnia: Code(s): J96.22 - Acute and chronic respiratory failure with hypercapnia Status: Acute Assessment and Plan: Patient with a history of ALS on a noninvasive ventilator and per the family's report they have had to increase the ventilatory support over the last year and Dr. Givens the Patient's respiratory doctor has told them that there are at now at near maximum support on the ventilator. in the chart the current ventilator settings are AVAPS respiratory rate 12, tidal volume 380, EPAP 4, pressure support 10. Patient had acute respiratory episode after she woke up she had a wet cough and then had hypoxemia And shortness of breath. She did Wilber home ventilator but this did not help her. She presented to the emergency room and blood gas on admission was 7.34/61/78 with a serum bicarbonate of 35. This corrected with BiPAP rate of 16 10/5 over the next few hours with a blood gas of 7.44/39/105. she was treated with 1 dose of Levaquin and has chronic left lower lobe atelectasis and infiltrate and no PE on her CT scan scan of the chest. I suspect this was an episode of mucus plugging as the patient is now back to her baseline Without any respiratory issues and on room air with saturations 96%. career based intervention coordinator told me that in if has been attempted with both the mask as well as a mouthpiece and that the value was -10. There was a Cornet flutter valve in the room and I attempted to have her through this but she was unable to generate any flutter from the device. She was too weak to generate enough force and also had a poor seal around the mouthpiece. She was able to generate 500 mL on incentive spirometer I do not see evidence of a bacterial pneumonia, and she is afebrile, her leukocytosis has improved to 10.6 today and her procalcitonin is 0.1. At this time I agree with no antibiotics. we will place a call to [facility] to obtain Misael Dudley the most recent download. I have a call to Dr. Givens, telephone [phone]. my plan tonight is to place her on her home noninvasive ventilator and obtain an overnight oximetry on room air an ABG prior to removal of the device in the morning. I will perform a new if and a vital capacity twice a day. Will follow with you. (2) Amyotrophic lateral sclerosis: Code(s): G12.21 - Amyotrophic lateral sclerosis Status: Acute Assessment and Plan: Clinically the patient and her tell me that she has deteriorated throughout the last year and more so in the last month. She has 3 recent falls due to weakness and unsteadiness on 11/03, 11/06 and 11/07. This in addition to her respiratory issues above make me believe that her ALS is progressing. the patient and the know that this is a progressive disease and I assured them we are trying to do everything we can at this point and they understand this. History of Present Illness History of Present Illness Consult date: 11/09/21 Chief complaint: respiratory failure Narrative: 11/09/2021: This is a new Pulmonary consult for ALS with respiratory failure on home noninvasive ventilation. 76-year-old woman with a history of RF see-1 gene mutation and ALS followed by Dr. Kenny Kramer and Dr. Givens at [facility]. Patient is on riluzole 50 mg p.o. b.i.d. patient is on a home noninvasive ventilator managed by Dr. Givens and the tells me over the last year Dr. Givens would get downloads and has been increasing the ventilatory support over the last year. Patient has noticed worsening decline over the last year that has been accelerated over the last month. Patient was admitted to [facility] from 10/29/2019 to 10/30/2021 with leukocytosis 14.3, chest x-ray that showed left lower lobe atelectasis or infiltrate and treated for left lower lobe pneumonia with ceftriaxone and doxycycli
--- NOTE | 2021-11-09 13:52 | PCRCNOTE ---
[facility]. NIV compliance download scanned into EMR under [facility]
--- NOTE | 2021-11-09 13:52 | PCPTNOTE ---
Attempted PT evaluation this date however RN stated that pt had just laid down to take a nap and to try again later. Will attempt at a later date/time
[2021-11-09] MEDS: NEOMYCIN/POLYMYXIN/BACITRACIN OINTMENT 15 GM TUBE 1 APPLIC TOPICAL (15:54)
--- NOTE | 2021-11-09 18:51 | PHAR ---
PT'S HOME MED RILUZOLE 50 MG TAB VERIFIED BY PHARMACY
--- NOTE | 2021-11-09 22:01 | PCRCNOTE ---
Pt refuses apnea link, states she has her own Dr that manages her sleep and her CPAP/BIPAP needs and does not want changes made or studies done here
[2021-11-10 05:08] VITALS: BP 137/63; PULSE 79; RESP 17; TEMP 36.7; O2SAT 95
[2021-11-10] MEDS: SODIUM CHLORIDE 0.9% IV 1,000 ML 125 ML IV CONT (05:10)
[2021-11-10 06:25] LABS: Basophils Percent Auto 0.3 % (0.2-1.2); Eosinophils Absolute Auto 0.1 K/mm3 (0-0.3); Eosinophils Percent Auto 1.1 % (0-4.4); Hematocrit 36.2 % (37.0-47.0); Hemoglobin 11.5 g/dL (12.0-15.0); Immature Granulocyte Absolute 0.03 K/mm3 (0.00-0.031); Immature Granulocyte Percent A 0.3 % (0-0.5); Lymphocytes Percent Auto 30.2 % (18.3-44.2); Mean Corpuscular HGB Conc 31.8 g/dl (32-36); Mean Corpuscular Hemoglobin 29.3 pg (26-34); Mean Corpuscular Volume 92.1 fl (80-100); Mean Platelet Volume 10.3 fl (7.4-10.4); Monocytes Absolute Auto 0.6 K/mm3 (0.1-0.6); Monocytes Percent Auto 5.6 % (2.6-8.5); Neutrophils Absolute Auto 6.2 K/mm3 (1.3-6.7); Neutrophils Percent Auto 62.5 % (45.5-73.1); Platelet Count Result 260 k/mm3 (150-375); Red Blood Count 3.93 M/mm3 (4.2-5.4)
[2021-11-10 06:53] LABS: Anion Gap 4 mmol/L (8-16); Blood Urea Nitrogen 18 mg/dL (7-17); Calcium 7.4 mg/dL (8.4-10.2); Carbon Dioxide 28 mmol/L (22-30); Chloride 106 mmol/L (98-107); Estimated CRCL calculation 88 ml/min; Estimated Glomerular Filt Rate > 60; Glucose 90 mg/dL (65-110); Potassium 3.1 mmol/L (3.4-5.0); Sodium 138 mmol/L (137-145)
[2021-11-10] MEDS: LEVOTHYROXINE SODIUM 50 MCG TABLET PO (06:56)
--- NOTE | 2021-11-10 07:54 | PM.DS ---
DS: Admitting Diagnosis Discharge Date 11/10/21 Admitting Diagnosis Shortness of breath DS: Discharge Diagnosis Discharge Diagnosis (1) Acute and chronic respiratory failure with hypercapnia: Code(s): J96.22 - Acute and chronic respiratory failure with hypercapnia Status: Acute Assessment and Plan: By the time the patient was seen yesterday she was on room air with no difficulty breathing or shortness of breath. Pulmonology suspects the patient had a mucus plug due to her ALS causing a weak cough. Pulmonology ordered testing overnight to assess patient needs but patient declined the testing. This morning patient was seen by Pulmonology and stated she would prefer to have any adjustments that need to be made to be done by her doctors at [facility]. -Patient is on room air saturating well. Will discharge to home as patient is declining pulmonology workup. (2) Abnormal chest x-ray: Code(s): R93.89 - Abnormal findings on diagnostic imaging of other specified body structures Status: Acute Assessment and Plan: Chest x-ray once again shows left basilar airspace opacity with slight worsening consistent with atelectasis versus pneumonia. Recently finished a 7 day course of levofloxacin. Leukocytosis almost resolved this morning. BCX with no growth. Patient has remained afebrile and leukocytosis has resolved. (3) Frequent falls: Code(s): R29.6 - Repeated falls Status: Acute Assessment and Plan: Has home health. (4) Tachycardia: Code(s): R00.0 - Tachycardia, unspecified Status: Acute Assessment and Plan: Resolved. (5) Amyotrophic lateral sclerosis: Code(s): G12.21 - Amyotrophic lateral sclerosis Status: Acute Assessment and Plan: Follows at [facility] for treatment. DS: Summary Hospital Course Reason for hospitalization: Shortness of breath Hospital Course: 76F with a past medical history of amyotrophic lateral sclerosis with chronic respiratory failure, hypothyroidism, hyperlipidemia and gastroesophageal reflux who presented to the emergency department by ambulance from home due to shortness of breath. Patient had recently been treated and discharged for Pneumonia on 10/30/21. She reported oxygen saturations in the 70s. Pulmonology was consulted. Patient was placed on BIPAP and significantly improved. The next morning the patient was no longer requiring oxygen. Pulmonology wanted to have the patient on her noninvasive ventilator overnight with overnight oximetry on room air plus and arterial blood gas before removal of the ventilator. The patient refused testing. The next morning she told Dr. Anderson she would prefer to have any adjustments that needed to be made to be done by her doctors at [facility]. Patient reiterated this to me as well. Patient was on room air with adequate oxygenation and back to her baseline. Pulmonology suspected the patient likely had a mucus plug, which is what caused her desaturation. Patient was discharged to home with home health. Time Spent with Patient Time attestation: Total time spent providing and/or coordinating discharge services: Exam Narrative: GENERAL: NAD, cooperative HEENT: Normocephalic, atraumatic, anicteric NECK: Supple CV: Normal S1, S2, RRR, No MRG RESP: CTAB, Normal work of breathing. EXTREMITIES: Warm and well perfused. SKIN: warm, dry and intact. NEURO: CN 2-12 grossly intact DS: Data Data Completed and Pending Labs on day of discharge: Labs from last 24 hours 11/10/21 11/10/21 05:58 05:58 WBC 10.0 RBC 3.93 L Hgb 11.5 L Hct 36.2 L MCV 92.1 MCH 29.3 MCHC 31.8 L RDW 14.0 Plt Count 260 MPV 10.3 Immature Gran % (Auto) 0.3 Neut % (Auto) 62.5 Lymph % (Auto) 30.2 [place] % (Auto) 5.6 Eos % (Auto) 1.1 Baso % (Auto) 0.3 Lymph # (Auto) 3.00 [place] # (Auto) 0.6 Eos # (Auto) 0.1 Baso # (Auto) 0.0 Abs Immat G
[2021-11-10 08:00] VITALS: BP 127/63; BP 133/62; BP 144/76
--- NOTE | 2021-11-10 08:00 | PM.DS ---
DS: Summary Time Spent with Patient Time attestation: Total time spent providing and/or coordinating discharge services: DS: Data Data Completed and Pending Labs on day of discharge: Labs from last 24 hours 11/10/21 11/10/21 05:58 05:58 WBC 10.0 RBC 3.93 L Hgb 11.5 L Hct 36.2 L MCV 92.1 MCH 29.3 MCHC 31.8 L RDW 14.0 Plt Count 260 MPV 10.3 Immature Gran % (Auto) 0.3 Neut % (Auto) 62.5 Lymph % (Auto) 30.2 [place] % (Auto) 5.6 Eos % (Auto) 1.1 Baso % (Auto) 0.3 Lymph # (Auto) 3.00 [place] # (Auto) 0.6 Eos # (Auto) 0.1 Baso # (Auto) 0.0 Abs Immat Gran (auto) 0.03 Absolute Neuts (auto) 6.2 Absolute Nucleated RBC 0.0 Nucleated RBC % 0.0 Sodium 138 Potassium 3.1 L Chloride 106 Carbon Dioxide 28 Anion Gap 4 L BUN 18 H Creatinine 0.40 L Estim Creat Clear Calc 88 Estimated GFR > 60 Glucose 90 Calcium 7.4 L Preliminary micro results at discharge 11/08/21 12:10 Blood Culture - Preliminary Blood 11/08/21 12:11 Blood Culture - Preliminary Blood Discharge Plan Discharge Consulting providers: Surjit Anderson Discharge Medications: No Action acetaminophen [Tylenol Extra Strength] 500 mg Tablet 500 mg PO Q6H PRN (Reason: Pain) cholecalciferol (vitamin D3) [Vitamin D3] 50 mcg (2,000 unit) Capsule 50 mcg PO DAILY lutein 20 mg Tablet 20 mg PO DAILY Adults Multivitamin 18 mg iron-400 mcg-25 mcg Tablet 1 tablet PO DAILY Spiriva Respimat 2.5 mcg/actuation mist 2 puff INHALATION DAILY albuterol sulfate [ProAir HFA] 90 mcg/actuation HFA aerosol inhaler 2 puff INHALATION Q4H PRN (Reason: Shortness Of Breath) azelastine 0.15 % (205.5 mcg) spray,non-aerosol 1 spray NASAL DAILY Rx Instructions: administer into each nostril riluzole 50 mg tablet 50 tablet PO BID sertraline 50 mg tablet 75 mg PO DAILY Neosporin ([id number]-[id number]) Packet 1 applic TOPICAL BID levothyroxine 50 mcg tablet 50 mcg PO DAILY Qty: 90 3RF atorvastatin 40 mg tablet 40 mg PO DAILY Qty: 90 3RF Rx Instructions: take 1 tablet by oral route every day Date of admission: 11/08/21 13:25 Primary Care Provider: JalilAbhay Admitting Provider: Philip Pretty Attending physician on admission: Philip Pretty Condition: Stable Quality VTE Prophylaxis VTE prophylaxis: mechanical ordered
[2021-11-10] MEDS: UMECLIDINIUM BROMIDE 62.5 MCG ELLIPTA 1 PUFF INHALATION (08:27)
[2021-11-10 08:31] VITALS: O2SAT 96
--- NOTE | 2021-11-10 09:05 | PM.PNPUL ---
Progress Note: A&P Assessment and Plan (1) Acute and chronic respiratory failure with hypercapnia: Code(s): J96.22 - Acute and chronic respiratory failure with hypercapnia Status: Acute Assessment and Plan: Patient with a history of ALS on a noninvasive ventilator and per the family's report they have had to increase the ventilatory support over the last year and Dr. Givens the Patient's respiratory doctor has told them that there are at now at near maximum support on the ventilator. I received a download from [facility] [employer] from 10/11 through 11/09/2021. Patient is on an Astral with a set rate of 12, tidal volume 380, EPAP 4, PSV 10, maximum pressure support 15, TI minimum 1.5, TI maximum 2.5, cycle 15%. uses days greater than or equal to 4 hours is 08/02/2029 days or 80%. AHI is 1.3. Apnea index 1.0, hypopnea index 0.3. Median leak is 4.2, 5th percentile leak is 0.0, 95th percentile leak is 32.5. Median tidal volume is 516 mL, median respiratory rate is 12, median minute ventilation is 6.9. 11/09 Patient had acute respiratory episode after she woke up she had a wet cough and then had hypoxemia And shortness of breath. She did Wilber home ventilator but this did not help her. She presented to the emergency room and blood gas on admission was 7.34/61/78 with a serum bicarbonate of 35. This corrected with BiPAP rate of 16 10/5 over the next few hours with a blood gas of 7.44/39/105. she was treated with 1 dose of Levaquin and has chronic left lower lobe atelectasis and infiltrate and no PE on her CT scan scan of the chest. I suspect this was an episode of mucus plugging as the patient is now back to her baseline Without any respiratory issues and on room air with saturations 96%. merchandising coordinator told me that in if has been attempted with both the mask as well as a mouthpiece and that the value was -10. There was a Cornet flutter valve in the room and I attempted to have her through this but she was unable to generate any flutter from the device. She was too weak to generate enough force and also had a poor seal around the mouthpiece. She was able to generate 500 mL on incentive spirometer I do not see evidence of a bacterial pneumonia, and she is afebrile, her leukocytosis has improved to 10.6 today and her procalcitonin is 0.1. At this time I agree with no antibiotics. we will place a call to [facility] to obtain the most recent download. I have a call to Dr. Givens, telephone [phone]. I left a message to call me. my plan tonight is to place her on her home noninvasive ventilator and obtain an overnight oximetry on room air an ABG prior to removal of the device in the morning. I will perform a NIF and a vital capacity twice a day. 11/10 Patient was placed on her home noninvasive ventilator on room air and the plan was to obtain an overnight oximetry to assess her oxygen requirements and a blood gas to assess her ventilation. The patient refused both of these tests stating that Dr. Givens monitors this and would make any changes if needed. Patient states she is feeling back at her baseline. denies any fever, chills, cough, phlegm production. She tolerated her home noninvasive well. room air sats are 96%. I had patient do bedside incentive spirometry and she could only pull 200 and 250 mL. Her NIF has been -10. her vital capacity is recorded at 60 mL. when I ask her to cough she cannot. without an overnight oximetry in a morning blood gas I cannot assess her need for oxygen at night or if there is a need for an increase in her minute ventilation. The patient states that she will follow-up with Dr. Givens. I have not received a call from Dr. Givens. The patient has worsening motor strength with very poor respiratory strength and I have recommended the patient talk with her and her Neurology team regarding subsequent level of care for worsening respiratory status where she m
[2021-11-10] MEDS: SERTRALINE HCL 25 MG TABLET 75 MG PO (09:13)
[2021-11-10] MEDS: MULTIVITAMINS /C LUTEIN (CENTRUM SILVER) TABLET *BKC 1 TAB PO (09:13)
[2021-11-10] MEDS: ATORVASTATIN 40 MG TABLET PO (09:13)
[2021-11-10] MEDS: CHOLECALCIFEROL 1,000 UNITS TABLET 2000 UNITS PO (09:13)
[2021-11-10] MEDS: NEOMYCIN/POLYMYXIN/BACITRACIN OINTMENT 15 GM TUBE 1 APPLIC TOPICAL ×4 (09:15→16:44)
[2021-11-10] MEDS: AZELASTINE HCL NASAL 0.1% 137 MCG/SPR 30 ML BTL 1 SPRAY NASAL (09:16)
[2021-11-10] MEDS: POTASSIUM CHLORIDE INJ 40 MEQ in SODIUM CHLORIDE 0.9% IV 500 ML 130 MEQ IVPB (09:17)
--- NOTE | 2021-11-10 10:26 | PCSTNOTE ---
Patient refused transport to radiology and per transportation superintendent patient's son was present and stated that she is under care by a physician in [place] and they are aware of her medical condition and needs, and patient/son do not want her to have a MBS. Spoke directly to nurse and she also stated patient refused.
--- NOTE | 2021-11-10 13:26 | PCNFU ---
Nutrition Follow-Up Complete: Swallowing Difficulties as related to Hx of Dysphagia as evidenced by modified diet orders. Goal:Meet estimated nutritional needs. Pt is meeting goal. Continue with same goal. Pt current nutrition is Regular / Soft and bite sized level 6, Ensure compact BID. Nutrition recommendation: Continue with current plan of care. Last recorded weight is 71.1 kg - stable. Bowel Motility: +BM 11/09 Labs Reviewed: Hgb:12.7, HCT:41, NA:135, GFR:23, BUN:27, Glu:112 Meds Noted: vit D Skin: WNL Additional Notes: Pt was scheduled for MBS, pt and son both declined testing per SECRETARY ADMINISTRATIVE ASSISTANT. Diet continues as soft and bite sized, Intake good at 75-100% of meals. Will monitor every 7 days.
== END 2021-11-10 18:10 | disposition home health service (06) ==
LOC: ANHED 11:24 → ANHIMU 11-09 10:39 → ANH3MEDSUR 11-10 13:09 → ANHIMU 11-13 13:14
PROVIDERS: Internal Medicine; Physician Assistant; Admitting Provider Family Medicine; Emergency Provider Emergency Medicine; PCP Internal Medicine; Visit Provider Family Medicine
DX: J96.22 Acute and chronic respiratory failure with hypercapnia (principal); R91.8 Other nonspecific abnormal finding of lung field; R29.6 Repeated falls; R00.0 Tachycardia, unspecified; G12.21 Amyotrophic lateral sclerosis; Z87.01 Personal history of pneumonia (recurrent); J45.909 Unspecified asthma, uncomplicated; K21.9 Gastro-esophageal reflux disease without esophagitis; E78.5 Hyperlipidemia, unspecified; E03.9 Hypothyroidism, unspecified; I49.3 Ventricular premature depolarization; Z99.11 Dependence on respirator [ventilator] status; Z20.822 Contact with and (suspected) exposure to COVID-19; Z87.891 Personal history of nicotine dependence; Z79.51 Long term (current) use of inhaled steroids; Z79.1 Long term (current) use of non-steroidal anti-inflammatories (NSAID); Z79.899 Other long term (current) drug therapy
CPT/HCPCS: 36415; 36600; 70450; 71045; 71275; 80048; 80053; 81003; 82375; 82805; 82948; 83050; 83605; 83735; 84145; 84443; 84484; 85025; 85027; 85610; 85730; 86140; 87040; 93005; 94002; 94640; 94667; 96361; 96365; 96366; 96375; 97161; 97166; 97535; 99285; A9270; C9803; G0378; J1956; J3480; J7030; J7040; Q9967; U0003; U0005

== ENCOUNTER 2021-11-17 10:52 | Emergency (ER) | payer MEDICARE, SELFPAY ==
--- NOTE | 2021-11-17 10:53 | ED.SKABFB ---
HPI - Skin/Abscess/Foreign Bdy General Stated complaint: removal of stitches Time Seen by Provider: 11/17/21 10:53 Source: patient Mode of arrival: ambulatory Limitations: no limitations History of Present Illness HPI narrative: Ms. Joseph is a 76-year-old female patient presenting to the clinic today for staple removal. She reports she fell over a week ago and had a horizontal laceration to the top of her scalp and then she fell again last Saturday and got carmen placed vertically in her top scalp. A total of [address] to the top of the scalp. No signs of infection-redness, swelling, or discharge Related Data Home Medications Medication Instructions Recorded Confirmed albuterol sulfate 90 mcg/actuation 2 puff inhalation Q4H PRN 06/09/19 11/08/21 aerosol inhaler (ProAir HFA) Shortness Of Breath azelastine 205.5 mcg (0.15 %) 1 spray intranasal DAILY 06/09/19 11/08/21 nasal spray tiotropium bromide 2.5 2 puff inhalation DAILY 06/09/19 11/08/21 mcg/actuation mist for inhalation (Spiriva Respimat) acetaminophen 500 mg tablet 500 mg PO Q6H PRN Pain 12/31/20 11/08/21 (Tylenol Extra Strength) cholecalciferol (vitamin D3) 50 50 mcg PO DAILY 12/31/20 11/08/21 mcg (2,000 unit) capsule (Vitamin D3) lutein 20 mg tablet 20 mg PO DAILY 12/31/20 11/08/21 multivit with minerals-iron 18 1 tablet PO DAILY 12/31/20 11/08/21 mg-folic ac 400 mcg-vit K 25 mcg tablet (Adults Multivitamin) riluzole 50 mg tablet 50 tablet PO BID 10/29/21 11/08/21 sertraline 50 mg tablet 75 mg PO DAILY 10/29/21 11/08/21 [id number] 1 applic topical BID 11/09/21 11/09/21 topical packet Allergies Allergy/AdvReac Type Severity Reaction Status Date / Time erythromycin base Allergy Unknown Unknown Verified 11/08/21 14:03 metformin AdvReac Severe Diarrhea Verified 11/08/21 14:03 Review of Systems Review of Systems: Pertinent positives per HPI. Patient denies any fever, chills, rash, headache, visual changes, dizziness, cough, runny nose, sore throat, shortness of breath, chest pain, palpitations, nausea, vomiting, diarrhea, constipation, abdominal pain, or any urinary issues. [facility] Past Medical History Medical History Amyotrophic lateral sclerosis 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 Patient of [address] Kenny Kramer at [facility]. Asthma Chronic respiratory failure Patient of Dr. Rene Givens at [place]. Environmental allergies Gastroesophageal reflux disease Hyperlipidemia Hypothyroidism Surgical History Surgical History History of cholecystectomy History of hernia repair History of surgery on left wrist History of tonsillectomy History of tubal ligation [place] teeth removed Family History Family History Mother Family history of hypercholesterolemia Father Family history of atrial fibrillation Social History Social History Social History: Surrogate medical decision maker: Rikki Joseph, spouse. Code status: Full code. Smoking packs per day: 0 Smoking cigarettes per day: 0.0 Years smoked: 4 Smoking pack-years: 0.00 Smoking status: Former smoker Tobacco type: cigarettes Second hand tobacco smoke exposure: No Smoking end date: 04/15/69 Alcohol intake: former Drinks per week: 1 Alcohol use details: Social Substance use: never Substance use type: does not use Spiritual care concerns: No Agree to blood products: Yes Comments At the time of my signature, I reviewed and agree with the nursing past medical, surgical, social, and family history. There is no relevant family history pertinent to the patient complaint. Exam Narrative: General: Well-developed, well nourished, in no apparent distress
[2021-11-17 10:57] VITALS: PULSE 112; RESP 16; TEMP 37; O2SAT 96
[2021-11-17 11:14] VITALS: BP 140/75
== END 2021-11-17 11:17 | disposition home or self-care (01) ==
PROVIDERS: Emergency Provider Nurse Practitioner Family; PCP Internal Medicine
DX: S01.01XD Laceration without foreign body of scalp, subsequent encounter (principal); W19.XXXD Unspecified fall, subsequent encounter; J45.909 Unspecified asthma, uncomplicated; K21.9 Gastro-esophageal reflux disease without esophagitis; Z87.891 Personal history of nicotine dependence
CPT/HCPCS: 99211; G0463

== ENCOUNTER 2022-03-21 16:04 | Inpatient (IN) | payer MEDICARE, SELFPAY ==
--- NOTE | ~2022-03-21 | XR_ITS ---
XR chest 1V portable 03/21/2022 16:50 Indication: Shortness of breath. History of asthma. Low oxygen saturation. Procedure: AP portable chest Comparison: 11/08/2021 Findings: Chronic elevation of the left diaphragm suspicious for phrenic nerve paralysis. Left basila r infiltrates represent atelectasis or less likely pneumonia. Stable cardiomediastinal silhouette. Th ere is dextroscoliosis of the thoracic spine. Right lung clear. No significant effusion or pneumothor ax. Impression: 1: Left basilar infiltrates most likely atelectasis. Pneumonia less favored. 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 Reviewed, dictated and finalized at location A. PAPER PHOTOGRAPHER Impression: 1: Left basilar infiltrates most likely atelectasis. Pneumonia less favored. 2: Chronic left diaphragmatic elevation, likely secondary to phrenic nerve par alysis.
[2022-03-21 16:13] VITALS: BP 175/98; PULSE 100; RESP 22; O2SAT 91
--- NOTE | 2022-03-21 16:29 | ECG_ITS ---
Measurements Intervals [place] Rate: 99 P: [place]: 0 QRS: 45 QRSD: 99 T: 37 QT: 362 QTc: 466 Interpretive Statements REDUCED ECG QUALITY BECAUSE OF BASELINE ARTIFACT SINUS RHYTHM ABNORMAL RHYTHM ECG COMPARED TO ECG 11/08/2021 11:12:17 PVC IS NO LONGER SEEN Electronically Signed On 03-23-2022 7:18:18 TEAM PSYCHOLOGIST by Surjit Mckenna M.D.
--- NOTE | 2022-03-21 17:09 | PC.NURSE ---
attempt to draw labs unsuccessful. continue waiting edp evaluation.
[2022-03-21 17:49] LABS: Base Excess ABG 3.3 mEq/l (+/-2.0); Carboxyhemoglobin 2.2 % THb (0-2.0); Fractional Inspired Oxygen 21 %; HCO3 ABG 27.2 mEq/l (22.0-26.0); Methemoglobin ABG 0.3 %THb (0-1.5); Modified Allen's Test Pass; Oxygen Content ABG 17.3 %vol (16.0-22.0); Oxygen Saturation ABG 92.9 % (95.0-100.0); Oxyhemoglobin 89.6 % THb (90.0-100.0); PCO2 ABG 39.1 mmHg (35.0-45.0); PO2 ABG 61.9 mmHg (80.0-100.0); PO2 FiO2 Ratio Arterial Blood 2.95 %; Reduced Hemoglobin 7.9 %THb (0-5.0); Site Drawn LEFT RADIAL; Total Hemoglobin 13.7 g/dL (12.0-18.0)
[2022-03-21 17:53] LABS: Device OTHER DEVICE
[2022-03-21 18:08] LABS: Basophils Percent Auto 0.3 % (0.2-1.2); Eosinophils Absolute Auto 0.1 K/mm3 (0-0.3); Eosinophils Percent Auto 0.6 % (0-4.4); Hematocrit 43.8 % (37.0-47.0); Hemoglobin 13.8 g/dL (12.0-15.0); Immature Granulocyte Absolute 0.03 K/mm3 (0.00-0.031); Immature Granulocyte Percent A 0.3 % (0-0.5); Lymphocytes Absolute Auto 1.34 K/mm3 (0.9-3.2); Mean Corpuscular HGB Conc 31.5 g/dl (32-36); Mean Corpuscular Hemoglobin 28.9 pg (26-34); Mean Corpuscular Volume 91.6 fl (80-100); Mean Platelet Volume 9.9 fl (7.4-10.4); Monocytes Absolute Auto 0.7 K/mm3 (0.1-0.6); Monocytes Percent Auto 6.4 % (2.6-8.5); Neutrophils Percent Auto 80.4 % (45.5-73.1); Platelet Count Result 301 k/mm3 (150-375); Red Blood Count 4.78 M/mm3 (4.2-5.4); Red Cell Distribution Width 14.4 % (11.5-14.5); White Blood Count 11.1 K/mm3 (4.5-10.0)
[2022-03-21 18:19] LABS: Alanine Aminotransferase 31 U/L (6-35); Albumin Level 3.4 g/dL (3.5-5.1); Alkaline Phosphatase 201 U/L (38-126); Anion Gap 4 mmol/L (8-16); Aspartate Amino Transferase 42 U/L (14-36); Bilirubin,Total 0.6 mg/dL (0.2-1.3); Blood Urea Nitrogen 22 mg/dL (7-17); Calcium 8.6 mg/dL (8.4-10.2); Carbon Dioxide 34 mmol/L (22-30); Chloride 100 mmol/L (98-107); Estimated CRCL calculation 78 ml/min; Estimated Glomerular Filt Rate > 60; Glucose 107 mg/dL (65-110); Potassium 4.1 mmol/L (3.4-5.0); Sodium 138 mmol/L (137-145)
[2022-03-21 18:28] LABS: Influenza A QL RT-PCR Negative (Negative); Influenza B QL RT-PCR Negative (Negative); SARS-CoV-2 RNA PCR Negative
--- NOTE | 2022-03-21 18:30 | ED.GENADULT ---
HPI - General Adult General Chief complaint: Shortness of Breath/Dyspnea Stated complaint: sob Time Seen by Provider: 03/21/22 17:10 History of Present Illness HPI narrative: 77-year-old female presenting to the emergency department for evaluation of shortness of breath with hypoxia. Patient does have ALS and was diagnosed 2 years ago. Over the last few months patient has had worsening respiratory status. Patient was admitted in October when she had similar episodes of shortness of breath and during her admission had her vent settings adjusted. states that over the past 2 months states that her respiratory status has worsened. Today the patient had a pulse ox in the 60s. Upon arrival to the emergency room patient was on her home BiPAP and her saturation was in the low 90s. Patient's ABG reflected a low PCO2 and patient had oxygen bleedthrough added to her event. Patient does feel improved with this. Patient does get supplemental feedings through a G-tube. Patient has not yet able to tolerate on her percent of her caloric intake through G-tube due to the volume of the feeds. Patient has her neurologic follow-up at [facility] Related Data Home Medications Medication Instructions Recorded Confirmed albuterol sulfate 90 mcg/actuation 2 puff inhalation Q4H PRN 06/09/19 11/08/21 aerosol inhaler (ProAir HFA) Shortness Of Breath azelastine 205.5 mcg (0.15 %) 1 spray intranasal DAILY 06/09/19 11/08/21 nasal spray tiotropium bromide 2.5 2 puff inhalation DAILY 06/09/19 11/08/21 mcg/actuation mist for inhalation (Spiriva Respimat) acetaminophen 500 mg tablet 500 mg PO Q6H PRN Pain 12/31/20 11/08/21 (Tylenol Extra Strength) cholecalciferol (vitamin D3) 50 50 mcg PO DAILY 12/31/20 11/08/21 mcg (2,000 unit) capsule (Vitamin D3) lutein 20 mg tablet 20 mg PO DAILY 12/31/20 11/08/21 multivit with minerals-iron 18 1 tablet PO DAILY 12/31/20 11/08/21 mg-folic ac 400 mcg-vit K 25 mcg tablet (Adults Multivitamin) riluzole 50 mg tablet 50 tablet PO BID 10/29/21 11/08/21 sertraline 50 mg tablet 75 mg PO DAILY 10/29/21 11/08/21 [id number] 1 applic topical BID 11/09/21 11/09/21 topical packet Allergies Allergy/AdvReac Type Severity Reaction Status Date / Time erythromycin base Allergy Unknown Unknown Verified 03/21/22 16:22 metformin AdvReac Severe Diarrhea Verified 03/21/22 16:22 Review of Systems Review of Systems: ROS unobtainable: Yes unobtainable due to medical condition PMFSH Past Medical History Medical History Amyotrophic lateral sclerosis 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 Patient of Dr[facility] Kenny Kramer at [facility]. Asthma Chronic respiratory failure Patient of Dr. Rene Givens at [place]. Environmental allergies Gastroesophageal reflux disease Hyperlipidemia Hypothyroidism Surgical History Surgical History History of cholecystectomy History of hernia repair History of surgery on left wrist History of tonsillectomy History of tubal ligation [place] teeth removed Family History Family History Mother Family history of hypercholesterolemia Father Family history of atrial fibrillation Social History Social History Social History: Surrogate medical decision maker: Rikki Joseph, spouse. Code status: Full code. Smoking packs per day: 0 Smoking cigarettes per day: 0.0 Years smoked: 4 Smoking pack-years: 0.00 Smoking status: Former smoker Tobacco type: cigarettes Second hand tobacco smoke exposure: No Smoking end date: 04/15/69 Alcohol intake: former Drinks per week: 1 Alcohol use details: Social Substance use: never Substance use type: does not use Spiritual care concerns: N
[2022-03-21 20:59] VITALS: PULSE 105; RESP 21; O2SAT 94
--- NOTE | 2022-03-21 22:57 | PM.IMHP ---
H&P: HPI History of Present Illness Date/Time: 03/21/22 22:57 Chief Complaint: shortness of breath Narrative: This is a 77-year-old female with past medical history significant for ALS, patient is on a home vent for 16-18 hours a day, she is status post PEG tube placement, dysphagia, gastroesophageal reflux disease. most of the history has been obtained from her who is at bedside patient is currently on her home vent. According to she had acute episode of desaturation to 66% notice that she had slept more than usual in the morning looked tired had very little to eat although patient has PEG tube due to patient's weakness and dysphagia, weight loss secondary to not been able to eat sufficient. Also has cough inducing machine at home and they do this treatments several times a day every day has been suctioning copious amounts of white phlegm in the last day or so, did not notice any fevers. patient has been admitted for further evaluation management and treatment. chest x-ray was reported as: Impression: 1: Left basilar infiltrates most likely atelectasis. Pneumonia less favored. 2:? 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 Patient of Dr. Kenny Kramer at [facility]. Asthma Chronic respiratory failure Patient of Dr. Rene Givens at [place]. Environmental allergies Gastroesophageal reflux disease Hyperlipidemia Hypothyroidism Surgical History Surgical History History of cholecystectomy History of hernia repair History of surgery on left wrist History of tonsillectomy History of tubal ligation [place] teeth removed Family History Family History (Updated 03/22/22 @ 00:07 by Ann Hewitt RN) Mother Family history of hypercholesterolemia Dementia Father Family history of atrial fibrillation Heart failure Social History Social History Social History: Surrogate medical decision maker: Rikki Joseph, spouse. Code status: Full code. Smoking packs per day: 0.33 Smoking cigarettes per day: 6.6 Years smoked: 12 Smoking pack-years: 3.96 Smoking status: Former smoker Tobacco type: cigarettes Second hand tobacco smoke exposure: No Smoking end date: 04/15/69 Alcohol intake: former Drinks per week: 1 Alcohol use details: Social Substance use: never Substance use type: does not use Lack of Transportation: No Lack of Food: Never True Current Housing: I Have Housing Concerned About Future Housing: No Difficulty Paying Gas/Electric Bills: No Difficulty Paying for Meds: No Currently Unemployed: No Education: Master's Degree or Higher Difficulty w/ Childcare or Family Care: No Spiritual care concerns: No Agree to blood products: Yes Meds Home Medications and Allergies Home Medications Medication Instructions Recorded Confirmed Type albuterol sulfate 90 mcg/actuation 2 puff inhalation Q4H PRN 06/09/19 03/22/22 History aerosol inhaler (ProAir HFA) Shortness Of Breath azelastine 205.5 mcg (0.15 %) 1 spray intranasal DAILY 06/09/19 03/22/22 History nasal spray tiotropium bromide 2.5 2 puff inhalation DAILY 06/09/19 03/22/22 History mcg/actuation mist for inhalation (Spiriva Respimat) atorvastatin 40 mg tablet 40 mg PO DAILY #90 tabs 03/18/20 03/22/22 Rx levothyroxine 50 mcg tablet 50 mcg PO DAILY #90 tabs 03/18/20 03/22/22 Rx cholecalciferol (vitamin D3) 50 50 mcg PO DAILY 12/31/20 03/22/22 History mcg (2,000 unit) capsule (Vitamin D3) lut
[2022-03-21 23:10] VITALS: O2SAT 94
[2022-03-21 23:25] VITALS: BP 117/56; PULSE 100; RESP 22; TEMP 36.9; O2SAT 94; BMI 25.2
--- NOTE | 2022-03-21 23:56 | ADMGEN ---
This patient, Cinthia Joseph, was admitted to IMU Room 211-01 on 03/21/22 at 2310. Patient/family oriented to hospital policies and general routines including ID bracelet, bed and alarms, visiting hours, pain management, procedures, bathroom and other care routines, personal items, smoking policy, room service/diet, and visiting hours. Information on how to activate the Rapid Response Team has been discussed. Patient/Family are encouraged to report perceived risks to care and to ask questions if they do not understand what they are told or what they should do.
[2022-03-22] VITALS: PULSE 91; O2SAT 93
[2022-03-22 02:00] VITALS: PULSE 84
[2022-03-22 03:28] VITALS: PULSE 84; RESP 18; O2SAT 93
[2022-03-22 04:00] VITALS: BP 118/66; PULSE 77; PULSE 79; RESP 20; TEMP 36.4; O2SAT 97
[2022-03-22 06:00] VITALS: PULSE 75
[2022-03-22] MEDS: LEVOTHYROXINE SODIUM 50 MCG TABLET PO (06:05)
--- NOTE | 2022-03-22 06:23 | PCRCNOTE ---
Window of time for administration has passed. See next scheduled administration.
[2022-03-22 08:00] VITALS: BP 113/63; PULSE 71; PULSE 76; RESP 16; TEMP 36.2; O2SAT 95
[2022-03-22] MEDS: CHOLECALCIFEROL 1,000 UNITS TABLET 2000 UNITS PO (09:16)
[2022-03-22] MEDS: SERTRALINE HCL 25 MG TABLET 75 MG PO (09:17)
[2022-03-22] MEDS: ENOXAPARIN 40 MG/0.4 ML SYRINGE SUB-Q (09:17)
[2022-03-22] MEDS: MULTIVITAMINS /C LUTEIN (CENTRUM SILVER) TABLET *BKC 1 TAB PO (09:17)
[2022-03-22] MEDS: ATORVASTATIN 40 MG TABLET PO (09:17)
[2022-03-22] MEDS: AZELASTINE HCL NASAL 0.1% 137 MCG/SPR 30 ML BTL 1 SPRAY NASAL (09:17)
--- NOTE | 2022-03-22 09:44 | PM.CNPUL ---
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 She has been on noninvasive ventilation at home through Dr. Givens at [facility]. Family spoke to Dr. Givens 3 weeks ago as well as last night and [address] Givens was pleased with her noninvasive ventilator settings. Patient comes in now with increased phlegm production with no change in the color, no hemoptysis, no fever and no evidence of pneumonia. patient was hypoxemic at home and she had a similar presentation on 11/09/2021 deemed to be a mucus plug. this admission she had no evidence of hypercarbia on her noninvasive ventilator with a blood gas of 7.46/39/62. I suspect that she had a mucus plug today and currently she is at baseline on her noninvasive ventilator on room air with saturations 94-96%. I had a long discussion with her who takes complete care of this patient and is doing an extraordinary job. At this point I feel there is no evidence of pneumonia and from a pulmonary perspective patient is ready to be discharged home on these pulmonary medications: Spiriva Respimat 2.5 mcg at 2 puffs q.day, rescue albuterol p.r.n. shortness of breath or wheezing which she has not used in a number of months p.r.n. noninvasive ventilation: Patient's current home noninvasive ventilator is provided through [employer] telephone [phone] and she is set at a rate of 12 breathing 13, EPAP 4, PS V 10, safety tidal volume 380 and her peak pressure is 14 and her tidal volumes are 325-420, and minute ventilation is 6.7 I have informed the to call Dr. Givens, at [facility], so that she can be followed up per their recommendation discussed with Dr. Ware, will sign off, call with questions (2) ALS (amyotrophic lateral sclerosis): Code(s): G12.21 - Amyotrophic lateral sclerosis Status: Acute Assessment and Plan: patient continues to have slow progressive decline per the . Currently she is on noninvasive ventilation 18 hours a day, she has a PEG tube placed 6-8 weeks ago, more difficulty with her speech and motor function. She is on riluzole. She is followed up at [facility] with Dr. Kramer. History of Present Illness History of Present Illness Consult date: 03/22/22 Chief complaint: Respiratory distress, hypoxia, ALS Narrative: 03/22/2022: This is a new pulmonary consult for hypoxia and ALS. 77-year-old with a history of ALS for 2-3 years currently on home noninvasive ventilation, status post PEG tube placement 09 followed at [facility] by Neurology and respiratory. I obtained the history from the patient as well as the . I initially saw the patient in consultation on 11/09/2021 after she was admitted for a presumed mucus plug. At that time she was wearing noninvasive ventilation with an a VATS mode for approximately 12-14 hours a day. She had no evidence of pneumonia at that time and she was discharged that day. She also had chronically elevated left hemidiaphragm on that admission. The patient has had episodes of falls since then 1 requiring stitches to the head and these falls have been prevented now with a regular walker according to the . The patient had a modified barium swallow in November of 2021 the which demonstrated aspiration of all consistencies. Approximately 8 weeks ago the patient had a PEG tube placed and they have been attempting to titer up tube feeds to a goal of 4 cans a day but she develops diarrhea and she is currently at 2-1/2 cans a day and they are adjusting the frequency and the rate at which she is being fed to help with the diarrhea. She still takes oral nutrition at this time. The told me there were no witnessed episod
--- NOTE | 2022-03-22 11:10 | PM.DS ---
DS: Admitting Diagnosis Discharge Date 03/22/2022 Admitting Diagnosis shortness of breath DS: Discharge Diagnosis Discharge Diagnosis (1) Acute and chronic respiratory failure with hypercapnia: Code(s): J96.22 - Acute and chronic respiratory failure with hypercapnia Status: Acute Assessment and Plan: admit to IMU continue home vent pulmonary toilette supportive care pulmonology consult (2) Amyotrophic lateral sclerosis: Code(s): G12.21 - Amyotrophic lateral sclerosis Status: Acute Assessment and Plan: supportive care follows up elsewhere continue home meds (3) Gastroesophageal reflux disease: Code(s): K21.9 - Gastro-esophageal reflux disease without esophagitis Status: Acute Assessment and Plan: PPI DS: Summary Hospital Course Reason for hospitalization: shortness of breath Narrative: ?This is a 77-year-old female with past medical history significant for ALS, patient is on a home vent for 16-18 hours a day, she is status post PEG tube placement, dysphagia, gastroesophageal reflux disease. most of the history has been obtained from her who is at bedside patient is currently on her home vent.? According to she had acute episode of desaturation to 66% notice that she had slept more than usual in the morning looked tired had very little to eat although patient has ? PEG tube due to patient's weakness and dysphagia, weight loss secondary to not been able to eat sufficient.? Also has cough inducing machine at home and they do this treatments several times a day every day has been? suctioning? copious amounts of white phlegm in the last day or so, did not notice any fevers. patient has been admitted for further evaluation management and treatment. Hospital Course: Patient was seen by Dr. Anderson, assistant unit forester, and evaluated the patient, discussed with Dr. Anderson, recommended to discharge patient today as patient is well managed at home by her , patient will follow up with her assistant unit forester at [facility] Time Spent with Patient Time attestation: Total time spent providing and/or coordinating discharge services: Exam Narrative: Patient is comfortable, NAD HEENT: eyes are clear and none icteric LUNGS:normal respiratory efforts ABD: not distended Lower extremities: no edema SKIN: nonjaundiced Neuro: grossly intact. DS: Data Data Completed and Pending Labs on day of discharge: Labs from last 24 hours 03/21/22 03/21/22 03/21/22 17:37 17:37 17:37 WBC 11.1 H RBC 4.78 Hgb 13.8 Hct 43.8 MCV 91.6 MCH 28.9 MCHC 31.5 L RDW 14.4 Plt Count 301 MPV 9.9 Immature Gran % (Auto) 0.3 Neut % (Auto) 80.4 H Lymph % (Auto) 12.0 L Isabela % (Auto) 6.4 Eos % (Auto) 0.6 Baso % (Auto) 0.3 Lymph # (Auto) 1.34 Isabela # (Auto) 0.7 H Eos # (Auto) 0.1 Baso # (Auto) 0.0 Abs Immat Gran (auto) 0.03 Absolute Neuts (auto) 9.0 H Absolute Nucleated RBC 0.0 Nucleated RBC % 0.0 Puncture Site Left radial ABG pH 7.460 H ABG pCO2 39.1 ABG pO2 61.9 L ABG PO2/FiO2 Ratio 2.95 ABG HCO3 27.2 H ABG O2 Saturation 92.9 L ABG O2 Content 17.3 ABG Base Excess 3.3 A-a Gradient 41.0 Oxyhemoglobin 89.6 L Carboxyhemoglobin 2.2 H Methemoglobin 0.3 Reduced Hemoglobin 7.9 H Total Hemoglobin 13.7 O2 Delivery Device Other device O2 Liters/Min Not Reportable FiO2 21 Sodium 138 Potassium 4.1 Chloride 100 Carbon Dioxide 34 H Anion Gap 4 L BUN 22 H Creatinine 0.40 L Estim Creat Clear Calc 78 Estimated GFR > 60 Glucose 107 Calcium 8.6 Total Bilirubin 0.6 AST 42 H ALT 31 Alkaline Phosphatase 201 H Total Protein 7.0 Albumin 3.4 L Influenza A (RT-PCR) Influenza B (RT-PCR) SARS-CoV-2 RNA (RT-PCR) 03/21/22 17:37 WBC RBC Hgb Hct MCV MCH MCHC RDW Plt Count MP
== END 2022-03-22 12:45 | disposition home or self-care (01) | DRG 189 ==
LOC: ANHED 17:23 → ANHIMU 21:26
PROVIDERS: Emergency Medicine; Admitting Provider Student in an Organized Health Care Education/Training Program; Emergency Provider Emergency Medicine; PCP Internal Medicine; Visit Provider Family Medicine
DX: J96.21 Acute and chronic respiratory failure with hypoxia (principal); G12.21 Amyotrophic lateral sclerosis; J96.22 Acute and chronic respiratory failure with hypercapnia; T17.990A Other foreign object in respiratory tract, part unspecified in causing asphyxiation, initial encounter; K21.9 Gastro-esophageal reflux disease without esophagitis; E03.9 Hypothyroidism, unspecified; E78.5 Hyperlipidemia, unspecified; Z20.822 Contact with and (suspected) exposure to COVID-19; Z90.49 Acquired absence of other specified parts of digestive tract; Z87.891 Personal history of nicotine dependence
CPT/HCPCS: 36415; 36600; 71045; 80053; 82375; 82805; 83050; 85025; 87636; 93005; 99285; A9270; J1650

== ENCOUNTER 2022-05-21 16:32 | Emergency (ER) | payer MEDICARE, SELFPAY ==
[2022-05-21 16:37] VITALS: BP 148/63; PULSE 87; TEMP 36.2; O2SAT 95
--- NOTE | 2022-05-21 17:59 | ED.GENADULT ---
HPI - General Adult General Chief complaint: Unspecified Stated complaint: feeding tube pulled out, ALS Time Seen by Provider: 05/21/22 17:04 History of Present Illness HPI narrative: This is a 77-year-old female with history of ALS who is coming in for dislodged feeding tube. This occurred around 1545 when she was due for feeding. Family states when they went to grab it it just popped out. Tube has been in place since November and was placed by IR at [facility]. Denies any pain or other problems with the site. Denies fevers, chills. Related Data Home Medications Medication Instructions Recorded Confirmed albuterol sulfate 90 mcg/actuation 2 puff inhalation Q4H PRN 06/09/19 03/22/22 aerosol inhaler (ProAir HFA) Shortness Of Breath azelastine 205.5 mcg (0.15 %) 1 spray intranasal DAILY 06/09/19 03/22/22 nasal spray tiotropium bromide 2.5 2 puff inhalation DAILY 06/09/19 03/22/22 mcg/actuation mist for inhalation (Spiriva Respimat) cholecalciferol (vitamin D3) 50 50 mcg PO DAILY 12/31/20 03/22/22 mcg (2,000 unit) capsule (Vitamin D3) lutein 20 mg tablet 20 mg PO DAILY 12/31/20 03/22/22 multivit with minerals-iron 18 1 tablet PO DAILY 12/31/20 03/22/22 mg-folic ac 400 mcg-vit K 25 mcg tablet (Adults Multivitamin) riluzole 50 mg tablet 50 tablet PO BID 10/29/21 03/22/22 sertraline 50 mg tablet 75 mg PO DAILY 10/29/21 03/22/22 atropine 1 % eye drops 2 drp PO TID PRN secretions 03/22/22 03/22/22 Allergies Allergy/AdvReac Type Severity Reaction Status Date / Time erythromycin base Allergy Unknown Unknown Verified 03/21/22 16:22 metformin AdvReac Severe Diarrhea Verified 03/21/22 16:22 Review of Systems Review of Systems: CONSTITUTIONAL: Denies fever, chills, or sweats. EYES: Denies visual changes, redness, or discharge. ENT: Denies rhinorrhea, congestion, sore throat, or otalgia. CARDIOVASCULAR: Denies chest pain, palpitations, or edema. RESPIRATORY: Denies cough or dyspnea. GASTROINTESTINAL: Dislodged feeding tube. Denies abdominal pain, nausea, vomiting, or diarrhea. GENITOURINARY: Denies dysuria or hematuria. SKIN: Denies rash or itching. Denies erythema or warmth. MUSCULOSKELETAL: Denies back pain, joint pain, or myalgia. NEUROLOGIC: Denies headache, numbness, dizziness, or weakness. PSYCHIATRIC: Denies anxiety or depression. 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 Patient of Dr. Kenyn Kramer at [facility]. Asthma Chronic respiratory failure Patient of Dr. Rene Givens at [facility]. Environmental allergies Gastroesophageal reflux disease Hyperlipidemia Hypothyroidism Surgical History Surgical History History of cholecystectomy History of hernia repair History of surgery on left wrist History of tonsillectomy History of tubal ligation Gordon teeth removed Family History Family History (Updated 03/22/22 @ 00:07 by Ann Hewitt RN) Mother Family history of hypercholesterolemia Dementia Father Family history of atrial fibrillation Heart failure Social History Social History Social History: Surrogate medical decision maker: Rikki Joseph, spouse. Code status: Full code. Smoking packs per day: 0.33 Smoking cigarettes per day: 6.6 Years smoked: 12 Smoking pack-years: 3.96 Smoking status: Former smoker Tobacco type: cigarettes Second hand tobacco smoke exposure: No Smoking end date: 04/15/69 Alcohol intake: former Drinks per week: 1 Alcohol use details: Social Substance use: never Substance use type: does not use Lack of Transportation: No Lack of Food: Never True Current Housing: I Have Housing Concerned About Future Housing: No Difficulty Paying Gas/Electric
== END 2022-05-21 19:12 | disposition home or self-care (01) ==
PROVIDERS: Emergency Provider Physician Assistant; PCP Internal Medicine
DX: Z43.1 Encounter for attention to gastrostomy (principal); G12.21 Amyotrophic lateral sclerosis; J45.909 Unspecified asthma, uncomplicated; J96.10 Chronic respiratory failure, unspecified whether with hypoxia or hypercapnia; E78.5 Hyperlipidemia, unspecified; E03.9 Hypothyroidism, unspecified; K21.9 Gastro-esophageal reflux disease without esophagitis; Z87.891 Personal history of nicotine dependence
CPT/HCPCS: 43762; 99284